=== PATIENT | female | born 1980 | race American Indian/Alaskan Native ===

== ENCOUNTER 2018-01-18 23:18 | Emergency (ER) | payer MEDICAID, OTHER, SELFPAY ==
[2018-01-18 23:30] VITALS: BP 123/94; PULSE 118; RESP 18; TEMP 36.7; O2SAT 97; BMI 151.8
[2018-01-18 23:34] VITALS: BP 123/94; PULSE 118; PULSE 95; RESP 18; TEMP 36.7; O2SAT 97; O2SAT 98; BMI 25.4
[2018-01-18] MEDS: KETOROLAC 60 MG/2 ML VIAL 15 MG IV (23:54)
[2018-01-18] MEDS: ONDANSETRON 4 MG/2 ML INJ IV (23:54)
[2018-01-18] MEDS: SODIUM CHLORIDE 0.9% 1,000 ML 150 ML IV (23:55)
[2018-01-18 23:56] LABS: Add Manual Diff / Slide Review NO; Basophils Percent Auto 0.9 % (0-2); Eosinophils Percent Auto 2.7 % (2-4); Hematocrit 39.3 % (36-46); Hemoglobin 13.7 g/dL (12.0-16.0); Lymphocytes Percent Auto 46.7 % (25-40); Mean Corpuscular Hemoglobin 32.2 PG (26-34); Mean Corpuscular Volume 91.9 fL (80-100); Monocytes Percent Auto 5.2 % (3-14); Neutrophils Absolute Auto 5100 /uL (3000-5900); Neutrophils Percent Auto 44.5 % (50-75); Platelet Count 250 X10^3/uL (150-400); Red Blood Cell Count 4.27 X10^6/uL (4.0-5.2); White Blood Cell Count 11.5 X10^3/uL (4.5-11.0)
[2018-01-19] LABS: Alanine Aminotransferase 20 IU/L (9-52); Albumin 4.7 g/dL (3.5-5.0); Albumin Globulin Ratio 1.7 (1.0-2.8); Alkaline Phosphatase 79 U/L (38-126); Aspartate Aminotransferase 24 IU/L (14-36); BUN Creatinine Ratio 17.8 (6-22); Bilirubin Total 0.4 mg/dL (0.2-1.3); Blood Urea Nitrogen 16 mg/dL (7-17); Calcium 9.8 mg/dL (8.4-10.2); Carbon Dioxide 24 mmol/L (22-32); Chloride 104 mmol/L (98-107); Estimated Glomerular Filt Rate > 60.0 mL/min (>60); Globulin 2.8 g/dL (1.7-4.1); Glucose 88 mg/dL (70-100); HEMOLYSIS < 15 (0-50); Lipase 86 U/L (23-300); Potassium 3.7 mmol/L (3.4-5.1); Sodium 142 mmol/L (137-145); Total Protein 7.5 g/dL (6.3-8.2)
--- NOTE | 2018-01-19 00:10 | DI.US.S_ITS ---
PROCEDURE: US PELVIC COMPLETE INDICATIONS: severe sudden LLQ pain, ovary? TECHNIQUE: Real-time scanning was performed of the pelvic organs, with image documentation. Additional endovaginal scanning was necessary due to incomplete visualization of the adnexal and endometrial structures by transabdominal scanning. COMPARISON: [facility], US, PELVIC COMPLETE, 06/15/2016, 10:31. FINDINGS: Transabdominal scanning: Limited scanning through the kidneys shows no hydronephrosis. No pathologic free abdominal or pelvic fluid. Endovaginal scanning: Uterus: Uterus is normal in size at 7.5 x 3.4 x 4 cm. The endometrium measures 5 mm in combined thickness. Ovaries: Right ovary measures 3.2 x 3.7 x 3.1 cm in size. Left ovary measures 3.3 x 1.9 x 3.8 cm in size. No discrete pulmonary lesion is seen. Small bilateral ovarian follicles are seen. Normal arterial and venous flow is seen in bilateral ovaries on color Doppler images. IMPRESSION: No evidence of ovarian torsion. No discrete ovarian lesion. Normal appearing uterus and endometrium. No discrepancy. Dictated by: Sid Ulloa M.D. on 01/19/2018 at 9:39 Approved by: Sid Ulloa M.D. on 01/19/2018 at 9:40
--- NOTE | 2018-01-19 00:53 | DI.CT.S_ITS ---
PROCEDURE: CT ABDOMEN PELVIS W CON INDICATIONS: severe LLQ pain, normal US, labs, urine. Hx diverticulitis TECHNIQUE: After the administration of intravenous contrast, 5 mm thick sections acquired from the diaphragm to the symphysis. 5 mm coronal and sagittal reformats were acquired. For radiation dose reduction, the following was used: automated exposure control, adjustment of mA and/or kV according to patient size. COMPARISON: [facility], CT, ABDOMEN/PELVIS WITH CONTRAST, 06/12/2016, 21:03. FINDINGS: Image quality: Excellent. ABDOMEN: Lung bases: Bibasilar dependent atelectasis is seen. Heart size is normal. Solid organs: Liver is normal in size. Tiny well circumscribed 2-3 mm hypodense areas are seen scattered in the parenchyma, unchanged from previous studies and likely represent tiny cysts. Gallbladder is within normal limits. Biliary system is non dilated. Pancreas enhances normally. Spleen is normal in size and enhancement. No adrenal nodules. Kidneys demonstrate normal size and enhancement, without hydronephrosis. Small upper pole left renal cyst is again seen, unchanged from prior study. Uterus and bilateral ovaries show no gross abnormality. Peritoneum and bowel: Bowel loops demonstrate normal wall thickness and caliber. No free fluid or air. Appendix is visualized and is within normal limits mild sigmoid diverticulosis is seen, no CT evidence of acute diverticulitis area. Nodes and vessels: No retroperitoneal or mesenteric adenopathy by size criteria. Aorta and inferior vena cava are normal in size. Miscellaneous: No ventral hernias. PELVIS: Genitourinary: Bladder wall thickness is normal. Miscellaneous: No inguinal hernias or adenopathy. Bones: No suspicious bony lesions. No vertebral body compression fractures. IMPRESSION: 1. Normal appendix. Mild sigmoid diverticulosis with no significant evidence of acute diverticulitis. No free fluid or free air. 2. No renal stone or hydronephrosis. 3. Tiny hypodense areas scattered in the parenchyma, likely represent tiny hepatic cysts. No discrepancies. Dictated by: Sid Ulloa M.D. on 01/19/2018 at 8:55 Approved by: Sid Ulloa M.D. on 01/19/2018 at 8:58
[2018-01-19] MEDS: HYDROMORPHONE 1 MG INJ IV (01:06)
[2018-01-19 01:26] VITALS: BP 116/58; PULSE 94; RESP 16; O2SAT 100
[2018-01-19 02:38] VITALS: BP 110/57; PULSE 76; RESP 16; TEMP 36.8; O2SAT 100
--- NOTE | 2018-01-19 02:42 | ED_ITS ---
HPI - Abdominal Pain General Chief Complaint: Abdominal Pain Stated Complaint: SHARP STOMACH PAINS Time Seen by Provider: 01/18/18 23:24 Source: patient and family Mode of arrival: ambulatory Limitations: no limitations History of Present Illness HPI narrative: 37-year-old female with history of diverticulitis and kidney stones presents with sudden onset left lower quadrant pain that started 30 min prior to her arrival. She denies provocation or palliation nor radiation of her discomfort. She denies vomiting, diarrhea or dysuria but admits to nausea. She denies vaginal bleeding or discharge MD complaint: abdominal pain Onset (ago): minute(s) Pain Consistency: constant Location: LLQ Severity: moderate Severity scale (1-10): 8 Quality: stabbing and sharp Radiation: LLQ Migration to: no migration Relieving factors: nothing Exacerbating factors: nothing Associated symptoms: nausea Related Data Hx Last Menstrual Period: Normal, finished yesterday Home Medications Medication Instructions Recorded Confirmed diphenhydramine HCl [Benadryl 25 mg PO QDAY #0 12/27/16 Allergy] cyclobenzaprine 01/19/18 tramadol 50 mg PO QID PRN 01/19/18 01/19/18 Previous Rx's Medication Instructions Recorded propranolol 10 mg PO BID #60 tab 07/12/16 gabapentin [Neurontin] 0 PO SEE INSTRUCTIONS #90 cap 12/19/16 hydroxyzine HCl 25 mg PO TIDP PRN #90 tab 03/14/17 ropinirole 0.5 mg PO HS #30 tab 03/19/17 rizatriptan [Maxalt] 10 mg PO QDAYP #10 tab 06/20/17 hydrocodone-acetaminophen 1 tab PO Q4-6H PRN #14 tab 01/19/18 ondansetron [Zofran ODT] 4 mg PO Q6H PRN #14 tab 01/19/18 Allergies Allergy/AdvReac Type Severity Reaction Status Date / Time codeine Allergy Mild RASH Verified 01/18/18 23:30 ibuprofen AdvReac Mild EMESIS Verified 01/18/18 23:30 Review of Systems Review of Systems All systems reviewed & are unremarkable except as noted in HPI and below Constitutional Denies chills, Denies fever(s), Denies lethargy and Denies weakness Eyes Denies change in vision, Denies eye discharge, Denies irritation and Denies loss of vision ENT Ears, Nose, Mouth, and Throat: Denies change in voice, Denies neck pain and Denies sore throat Cardiovascular Denies chest pain, Denies irregular heart rhythm, Denies lightheadedness, Denies palpitations, Denies dyspnea, Denies dyspnea on exertion and Denies orthopnea Respiratory Denies cough, Denies dyspnea, Denies dyspnea on exertion and Denies wheezing Gastrointestinal Gastrointestinal: Reports abdominal pain, Denies change in bowel habits, Denies diarrhea, Reports nausea and Denies vomiting Genitourinary Denies hematuria, Denies flank pain, Denies urinary incontinence and Denies urinary urgency Musculoskeletal Denies neck pain Integumentary/Breasts Denies pruritus, Denies erythema, Denies rash and Denies wounds Neurologic Denies confusion, Denies loss of vision and Denies weakness Psychiatric Denies anxiety, Denies confusion, Denies depression, Denies homicidal ideation and Denies suicidal ideation Endocrine Denies palpitations Hematologic/Lymphatic Denies easy bruising Allergic/Immunologic Denies wheezing [facility] Social History Smoking Status: Current every day smoker Exam Narrative Exam Narrative: 37-year-old female obviously in discomfort, clutching her left lower abdomen Initial Vital Signs Initial Vital Signs: Vital Signs Temperature 98.1 F 01/18/18 23:30 Pulse Rate 118 H 01/18/18 23:30 Respiratory Rate 18 01/18/18 23:30 Blood Pressure 123/94 H 01/18/18 23:30 Pulse Oximetry 97 01/18/18 23:30 Const General: cooperative and well developed Nutritional Appearance: well nourished Orientation: alert, awake, oriented x3 and not confused [facility] Head: normocephalic and atraumatic Ears: external ears normal and TM's normal bilaterally Nose: external nose normal and No nasal discharge Face and sinus: sinuses nontender, face symmetric, no sinus tenderness and No dry mucous membranes Mouth: oral mucosae normal and moist mucous membranes Teeth and gingiva: dentition normal Throat: tonsils normal and uvula midline Eyes General: appearance normal, both eyes and all related structures Eyelids: eyelids normal Conjunctivae: conjunctivae normal Sclera: sclerae normal Pupils: PERRL EOM: EOM intact bilaterally Resp Effort & Inspection: normal respiratory effort, able to speak in complete sentences, no respiratory distress and no use of accessory muscles Auscultation: clear to auscultation bilaterally, no rales, no rhonchi and no wheezes GI Inspection: non-distended Palpation: soft, no hepatosplenomegaly, No guarding, No pulsatile mass and tender (Left lower quadrant, mild) Auscultation: normal bowel sounds Back/Spine/Pelvis Back: No CVA tenderness Cervical Spine: cervical ROM normal and No pain with cervical ROM Thoracic/Lumbar Spine: thoracic and lumbar spine normal to inspection Skin General: no rashes or lesions noted, No jaundice and No petechiae Neuro General: alert, oriented x3, gait normal and no focal motor deficits Speech: speech normal Extrem General: full ROM, no clubbing, cyanosis or edema, no pedal edema and no calf tenderness Course Orders Ordered: ED Orders 01/18/18 23:40 Complete Blood Count AUTO DIFF Stat Comprehensive Metabolic Panel Stat Lipase Stat 01/19/18 00:10 US pelvic complete Stat Urine Microscopic Stat 01/19/18 00:53 CT abdomen pelvis w con Stat Sodium Chloride (Normal Saline 0.9%) 1,000 mls @ 150 mls/hr IV CONT CRYSTAL Last Admin: 01/18/18 23:55 Dose: 150 mls/hr Ondansetron HCl (Zofran) 4 mg IV Q4HR PRN PRN Reason: Nausea And Vomiting Last Admin: 01/18/18 23:54 Dose: 4 mg Discontinued Medications Hydrocodone Bitart/Acetaminophen (Vicodin Prepack) 1 bottle MISC SEEINSTR ONE Stop: 01/19/18 02:37 Last Admin: 01/19/18 02:55 Dose: 1 bottle Hydromorphone HCl (Dilaudid) 1 mg IV NOW ONE Stop: 01/19/18 00:54 Last Admin: 01/19/18 01:06 Dose: 1 mg Ketorolac Tromethamine (Toradol) 15 mg IV NOW ONE Stop: 01/18/18 23:35 Last Admin: 01/18/18 23:54 Dose: 15 mg Ondansetron HCl (Zofran Odt Prepack) 1 bottle MISC SEEINSTR ONE Stop: 01/19/18 02:37 Last Admin: 01/19/18 02:55 Dose: 1 bottle Vital Signs - 8 hr 01/18/18 23:30 01/18/18 23:34 01/19/18 01:26 Temperature 98.1 F 98.1 F Pulse Rate 118 H 95 H 94 H Respiratory Rate 18 18 16 Blood Pressure 123/94 H 123/94 H Blood Pressure [Right Arm] 116/58 L Pulse Oximetry 97 98 100 01/19/18 02:38 Temperature 98.3 F Pulse Rate 76 Respiratory Rate 16 Blood Pressure Blood Pressure [Right Arm] 110/57 L Pulse Oximetry 100 MDM - Abdominal Pain Differential Diagnosis Differential diagnosis: Likely abdominal pain, acute appendicitis, calculus of kidney, constipation, diverticulitis, endometriosis, gastroenteritis, pancreatitis and small bowel obstruction Medical Records Attestation: I reviewed the patient's medical records. Lab Data Attestation: I reviewed the patient's lab results. Result diagrams: 01/18/18 23:40 01/18/18 23:40 Lab Results 01/18/18 01/18/18 Range/Units 23:40 23:40 WBC 11.5 H (4.5-11.0) X10^3/uL RBC 4.27 (4.0-5.2) X10^6/uL Hgb 13.7 (12.0-16.0) g/dL Hct 39.3 (36-46) % MCV 91.9 (80-100) fL MCH 32.2 (26-34) PG MCHC 35.0 (30-36) % RDW 13.0 (11.6-14.8) % Plt Count 250 (150-400) X10^3/uL Neut % (Auto) 44.5 L (50-75) % Lymph % (Auto) 46.7 H (25-40) % [place] % (Auto) 5.2 (3-14) % Eos % (Auto) 2.7 (2-4) % Baso % (Auto) 0.9 (0-2) % Neut # (Auto) 5100 (5378-6602) /uL Sodium 142 (137-145) mmol/L Potassium 3.7 (3.4-5.1) mmol/L Chloride 104 (98-107) mmol/L Carbon Dioxide 24 (22-32) mmol/L BUN 16 (7-17) mg/dL Creatinine 0.90 (0.52-1.04) mg/dL Estimated GFR > 60.0 (>60) mL/min BUN/Creatinine Ratio 17.8 (6-22) Glucose 88 (70-100) mg/dL Calcium 9.8 (8.4-10.2) mg/dL Total Bilirubin 0.4 (0.2-1.3) mg/dL AST 24 (14-36) IU/L ALT 20 (9-52) IU/L Alkaline Phosphatase 79 (38-126) U/L Total Protein 7.5 (6.3-8.2) g/dL Albumin 4.7 (3.5-5.0) g/dL Globulin 2.8 (1.7-4.1) g/dL Albumin/Globulin Ratio 1.7 (1.0-2.8) Lipase 86 (23-300) U/L Point of care testing: Urine Dip Bedside Urine Glucose Negative Bedside Urine Bilirubin - Negative Bedside Urine Ketone - Negative Urine Specific [place] 1.020 Bedside Urine Occult Blood - Negative Bedside Urine Protein - Negative Bedside Urine Urobilinogen - Negative Bedside Urine Nitrite + Positive Bedside Urine Leukocytes - Negative Esterase Imaging Data CT scan - abdomen: Radiologist's impression: 1. Normal appendix. No free air, bowel obstruction, or gross intestinal inflammation 2. Negative for acute obstructive uropathy 3. A few subcentimeter hepatic cysts are suspect MDM Narrative Medical decision making narrative: Considered ovarian torsion, tubo-ovarian abscess, ovarian cyst but patient has normal pelvic ultrasound Considered diverticulitis but patient has normal CT Considered kidney stone but no hematuria or evidence of stone on CT Considered UTI or pyelonephritis but no signs of UTI on urine and patient denies dysuria, frequency or urgency. There are nitrites noted and we will follow the cultures. No antibiotic indicated Endometriosis or pelvic congestion considered and will therefore refer to gynecology Discharge Plan Departure Patient Disposition: Home Clinical Impression: Pelvic pain Instructions: DI for Pelvic Pain Activity Restrictions/Additional Instructions: *You have been diagnosed with [ left lower quadrant pain ] *What to do: *Take medications as directed *Follow up with your primary care provider in 2-3 days, call for an appointment. Let them know you were seen in the Emergency Department and that we ask that you be seen in follow up *Return to ER if you should have any new, worsening or concerning symptoms Prescriptions: New hydrocodone-acetaminophen 5-325 mg tablet 1 tab PO Q4-6H PRN (Reason: pain) Qty: 14 RF: 0 ondansetron [Zofran ODT] 4 mg tablet,disintegrating 4 mg PO Q6H PRN (Reason: nausea and vomiting) Qty: 14 RF: 0 No Action propranolol 10 MG tablet 10 mg PO BID Qty: 60 RF: 2 gabapentin [Neurontin] 300 MG capsule PO SEE INSTRUCTIONS Qty: 90 RF: 11 diphenhydramine HCl [Benadryl Allergy] 25 MG tablet 25 mg PO QDAY Qty: 0 RF: 0 hydroxyzine HCl 25 MG tablet 25 mg PO TIDP PRNQty: 90 RF: 1 ropinirole 0.5 MG tablet 0.5 mg PO HS Qty: 30 RF: 3 rizatriptan [Maxalt] 10 MG tablet 10 mg PO QDAYP Qty: 10 RF: 2 tramadol 50 MG tablet 50 mg PO QID PRN (Reason: Pain (Scale Score 1-3)) RF: 0 cyclobenzaprine RF: 0 Referrals: Annette Hi MD [Physician] -
[2018-01-19] MEDS: ONDANSETRON 4 MG ODT PREPACK 1 BOTTLE MISC (02:55)
[2018-01-19] MEDS: HYDROCODONE/ACET 5/325 PREPACK 1 BOTTLE MISC (02:55)
--- NOTE | 2018-01-19 03:32 | PC.NURSE ---
IV ABX Rocephin started after 1 set of blood culture obtained. Pt uncoopertive and unable to obtained additional blood per laborer heading. aware and okayed.
--- NOTE | 2018-01-19 03:33 | PC.NURSE ---
Late Entry at 0220-Unable to obtained CT when RN and tech accompanied pt due to pt got agitate, uncooperative and attempting to getting out of bed even with redirection. Pt was unable to keep supine position for CT Head test. Pt returned to ER with techs and bed 6 and informed the MD the above.
--- NOTE | 2018-02-11 | PC.NURSE ---
Late Entry for 01/18/2018 at 0300-Completed NS 0.9% infusion of 500ml prior dc to home.
== END 2018-01-19 03:00 | disposition home or self-care (01) ==
PROVIDERS: Emergency Provider Emergency Medicine; Family Provider Family Medicine; PCP Family Medicine
DX: R10.2 Pelvic and perineal pain (principal)
CPT/HCPCS: 74177; 76830; 76856; 80053; 81003; 83690; 85025; 96361; 96374; 96375; 99283; 99285; J1170; J1885; J2405; Q9967

== ENCOUNTER 2018-10-03 13:31 | Emergency (ER) | payer MEDICAID, OTHER, SELFPAY ==
[2018-10-03 13:37] VITALS: BP 111/71; PULSE 132; RESP 18; TEMP 37.1; O2SAT 97
--- NOTE | 2018-10-03 13:53 | ED.ABDPAIN ---
HPI - Abdominal Pain <Lisette Razo PA-C - Last Filed: 10/03/18 21:56> General Chief Complaint: Abdominal Pain Stated Complaint: stomach pain,states really bad Time Seen by Provider: 10/03/18 13:49 Source: patient Mode of arrival: ambulatory Limitations: no limitations History of Present Illness HPI narrative: This 37-year-old female comes to ED secondary to worsening of left-sided flank area pain. She states she has been having intermittent difficulty with ongoing left-sided pain in various locations for at least a year. This started again about 2 weeks ago, and she was actually seen another local ED less than a week ago, labs and imaging done and no acute findings. She states she has not followed up in the interim with her PC P. she states that pain worsened today while she was getting ready for work. She denies any trauma, states she was doing spring cleaning she thinks maybe prior to the pain starting 2 weeks ago, and today it became severe enough to where she doubled over and had to be helped off the floor. She states pain is localized under her left lateral rib area. She denies any exacerbating or alleviating features, states pain is constant but will get a little bit worse episodically. She states she has had some retching and vomiting today which are new (mostly retching as she has not eaten, gets up late due to swing shift and was getting ready for work when this worsened). She states that she did keep down her tramadol today, has not had fluids. She denies any cough or upper respiratory symptoms or recent illness. She denies any fever, chills, sweats. She denies any hematuria or urinary symptoms. She denies any possibility of , last period was about 2 weeks ago. She states that she has some loose stools due to do a prescription she was given last weekend at the emergency department, no vernon diarrhea. She denies any chest pain or dyspnea or other new complaints on systems review Related Data Home Medications Medication Instructions Recorded Confirmed omeprazole 40 mg PO [id number] 10/03/18 10/03/18 sucralfate [Carafate] 1 g PO [id number] 10/03/18 10/03/18 tramadol 50 mg PO Q6H PRN 10/03/18 10/03/18 Previous Rx's Medication Instructions Recorded levofloxacin [Levaquin] 750 mg PO DAILY 6 Days tab 10/03/18 Allergies Allergy/AdvReac Type Severity Reaction Status Date / Time codeine Allergy Mild RASH Verified 10/03/18 13:41 ibuprofen AdvReac Mild EMESIS Verified 10/03/18 13:41 Review of Systems <Lisette Razo PA-C - Last Filed: 10/03/18 21:56> Review of Systems ROS Unobtainable: All systems reviewed & are unremarkable except as noted in HPI and below PFSH <Lisette Razo PA-C - Last Filed: 10/03/18 21:56> Medical History (Updated 10/03/18 @ 19:46 by Lisette Razo PA-C) Chronic pain in right shoulder (Chronic) Degenerative joint disease of cervical spine (Chronic) H/O renal calculi (Resolved) Migraine (Chronic) Surgical History (Updated 10/03/18 @ 14:25 by Lisette Razo PA-C) Status post shoulder surgery (Resolved) Status post wrist surgery (Resolved) Status post (Resolved) Family History (Updated 10/03/18 @ 13:53 by Lisette Razo PA-C) Other Migraine Social History Smoking Status: Current every day smoker Social History Smoking Status: Current every day smoker Exam <Lisette Razo PA-C - Last Filed: 10/03/18 21:56> Narrative Exam Narrative: GENERAL APPEARANCE: Patient appears somewhat uncomfortable, texting on her cell phone HEENT: PERRL, EOMI, no scleral icterus, normal oropharynx NECK: Supple, no masses LUNGS: Clear to auscultation bilaterally. HEART: Rate and rhythm regular, normal S1 and S2, no S3 or S4. ABDOMEN: Soft, nondistended, bowel sounds present x 4 quadrants, no masses palpable, no hepatosplenomegaly. tender left upper quadrant midline to lateral without guarding or rebound, no CVAT EXTREMITIES: No edema, no calf tenderness DERMATOLOGIC: No jaundice or exanthem NEUROLOGIC: Alert and oriented with normal speech and coordination Initial Vital Signs Initial Vital Signs: Vital Signs Temperature 98.8 F 10/03/18 13:37 Pulse Rate 132 H 05/10/19 13:37 Respiratory Rate 18 10/03/18 13:37 Blood Pressure 111/71 10/03/18 13:37 Pulse Oximetry 97 10/03/18 13:37 <Salomón White DO - Last Filed: 10/06/18 07:07> Initial Vital Signs Initial Vital Signs: Vital Signs Temperature 98.8 F 10/03/18 13:37 Pulse Rate 132 H 10/03/18 13:37 Respiratory Rate 18 10/03/18 13:37 Blood Pressure 111/71 10/03/18 13:37 Pulse Oximetry 97 10/03/18 13:37 Course <Lisette Razo PA-C - Last Filed: 10/03/18 21:56> Additional Information: At the time of discharge patient has had resolution in nausea and pain is improved. No acute findings on lab work or ultrasound, lab work and CT findings from ED visit last week reviewed. She does have bacteriuria and increased flank pain today so is started on treatment for pyelonephritis and given prescription for Levaquin to continue tomorrow. She has had Cipro previously without problems. She agreed to return right away if any acutely worsening symptoms over the weekend, otherwise promises to follow up with PCP on Saturday since her left-sided pain is chronic and she has not been seen after her ER visit last week. Orders Ordered: Discontinued Medications Cyclobenzaprine HCl (Flexeril) 10 mg PO NOW ONE Stop: 10/03/18 15:58 Last Admin: 10/03/18 16:01 Dose: 10 mg Sodium Chloride (Normal Saline 0.9%) 1,000 mls @ 1,000 mls/hr IV BOLUS ONE Stop: 10/03/18 15:18 Last Infusion: 10/03/18 15:15 Dose: 0 mls/hr Admin: 10/03/18 14:21 Dose: 1,000 mls/hr Sodium Chloride (Normal Saline 0.9%) 1,000 mls @ 1,000 mls/hr IV BOLUS ONE Stop: 10/03/18 16:55 Last Infusion: 10/03/18 17:03 Dose: 0 mls/hr Admin: 10/03/18 16:01 Dose: 1,000 mls/hr Lidocaine HCl 4.7 ml/ Sodium (Chloride) 54.7 mls @ 328.2 mls/hr IV NOW ONE Stop: 10/03/18 17:17 Last Infusion: 10/03/18 18:50 Dose: 0 mls/hr Admin: 10/03/18 17:54 Dose: 328.2 mls/hr Ketorolac Tromethamine (Toradol) 30 mg IV NOW ONE Stop: 10/03/18 14:07 Last Admin: 10/03/18 14:35 Dose: 30 mg Levofloxacin (Levaquin) 750 mg PO NOW ONE Stop: 10/03/18 17:43 Last Admin: 10/03/18 18:21 Dose: 750 mg Ondansetron HCl (Zofran) 4 mg IV NOW ONE Stop: 10/03/18 14:07 Last Admin: 10/03/18 14:21 Dose: 4 mg Ondansetron HCl (Zofran) 4 mg IV NOW ONE Stop: 10/03/18 15:57 Last Admin: 10/03/18 16:01 Dose: 4 mg Pantoprazole Sodium (Protonix) 40 mg IV NOW ONE Stop: 10/03/18 14:07 Last Admin: 10/03/18 14:36 Dose: 40 mg Tramadol HCl (Ultram) 100 mg PO NOW ONE Stop: 10/03/18 18:36 Last Admin: 10/03/18 18:50 Dose: 100 mg Vital Signs - 8 hr 10/03/18 14:49 10/03/18 15:00 10/03/18 16:00 Temperature Pulse Rate 96 H 99 H 92 H Respiratory Rate 18 13 13 Blood Pressure [Left Arm] 115/73 103/67 107/56 L Pulse Oximetry 97 98 99 10/03/18 18:52 10/03/18 19:29 Temperature 98.2 F Pulse Rate 95 H 80 Respiratory Rate 18 13 Blood Pressure [Left Arm] 103/62 98/59 L Pulse Oximetry 98 99 <Salomón White DO - Last Filed: 10/06/18 07:07> Orders Ordered: Discontinued Medications Cyclobenzaprine HCl (Flexeril) 10 mg PO NOW ONE Stop: 10/03/18 15:58 Last Admin: 10/03/18 16:01 Dose: 10 mg Sodium Chloride (Normal Saline 0.9%) 1,000 mls @ 1,000 mls/hr IV BOLUS ONE Stop: 10/03/18 15:18 Last Infusion: 10/03/18 15:15 Dose: 0 mls/hr Admin: 10/03/18 14:21 Dose: 1,000 mls/hr Sodium Chloride (Normal Saline 0.9%) 1,000 mls @ 1,000 mls/hr IV BOLUS ONE Stop: 10/03/18 16:55 Last Infusion: 10/03/18 17:03 Dose: 0 mls/hr Admin: 10/03/18 16:01 Dose: 1,000 mls/hr Lidocaine HCl 4.7 ml/ Sodium (Chloride) 54.7 mls @ 328.2 mls/hr IV NOW ONE Stop: 10/03/18 17:17 Last Infusion: 10/03/18 18:50 Dose: 0 mls/hr Admin: 10/03/18 17:54 Dose: 328.2 mls/hr Ketorolac Tromethamine (Toradol) 30 mg IV NOW ONE Stop: 10/03/18 14:07 Last Admin: 10/03/18 14:35 Dose: 30 mg Levofloxacin (Levaquin) 750 mg PO NOW ONE Stop: 10/03/18 17:43 Last Admin: 10/03/18 18:21 Dose: 750 mg Ondansetron HCl (Zofran) 4 mg IV NOW ONE Stop: 10/03/18 14:07 Last Admin: 10/03/18 14:21 Dose: 4 mg Ondansetron HCl (Zofran) 4 mg IV NOW ONE Stop: 10/03/18 15:57 Last Admin: 10/03/18 16:01 Dose: 4 mg Pantoprazole Sodium (Protonix) 40 mg IV NOW ONE Stop: 10/03/18 14:07 Last Admin: 10/03/18 14:36 Dose: 40 mg Tramadol HCl (Ultram) 100 mg PO NOW ONE Stop: 10/03/18 18:36 Last Admin: 10/03/18 18:50 Dose: 100 mg Vital Signs - 8 hr 10/03/18 14:49 10/03/18 15:00 10/03/18 16:00 Temperature Pulse Rate 96 H 99 H 92 H Respiratory Rate 18 13 13 Blood Pressure [Left Arm] 115/73 103/67 107/56 L Pulse Oximetry 97 98 99 10/03/18 18:52 10/03/18 19:29 Temperature 98.2 F Pulse Rate 95 H 80 Respiratory Rate 18 13 Blood Pressure [Left Arm] 103/62 98/59 L Pulse Oximetry 98 99 MDM - Abdominal Pain <Lisette Razo PA-C - Last Filed: 10/03/18 21:56> Lab Data Attestation: I reviewed the patient's lab results. Result diagrams: 10/03/18 14:15 10/03/18 14:15 Lab Results 10/03/18 10/03/18 10/03/18 Range/Units 14:15 14:15 15:30 WBC 9.2 (4.5-11.0) X10^3/uL RBC 4.73 (4.0-5.2) X10^6/uL Hgb 14.5 (12.0-16.0) g/dL Hct 43.9 (36-46) % MCV 92.9 (80-100) fL MCH 30.7 (26-34) PG MCHC 33.0 (30-36) % RDW 13.1 (11.6-14.8) % Plt Count 240 (150-400) X10^3/uL Neut % (Auto) 66.7 (50-75) % Lymph % (Auto) 26.2 (25-40) % [place] % (Auto) 5.4 (3-14) % Eos % (Auto) 0.9 L (2-4) % Baso % (Auto) 0.8 (0-2) % Neut # (Auto) 6200 (3295-1853) /uL Lymph # (Auto) 2400 (3265-7810) /uL [place] # (Auto) 500 (0-900) /uL Eos # (Auto) 100 (0-450) /uL Baso # (Auto) 100 (0-100) /uL Sodium 140 (137-145) mmol/L Potassium 4.0 (3.4-5.1) mmol/L Chloride 107 (98-107) mmol/L Carbon Dioxide 17 L (22-32) mmol/L BUN 11 (7-17) mg/dL Creatinine 0.80 (0.52-1.04) mg/dL Estimated GFR > 60.0 (>60) mL/min BUN/Creatinine Ratio 13.8 (6-22) Glucose 78 (70-100) mg/dL Calcium 9.0 (8.4-10.2) mg/dL Total Bilirubin 0.3 (0.2-1.3) mg/dL AST 28 (14-36) IU/L ALT 23 (9-52) IU/L Alkaline Phosphatase 63 (38-126) U/L Total Protein 8.4 H (6.3-8.2) g/dL Albumin 5.0 (3.5-5.0) g/dL Globulin 3.4 (1.7-4.1) g/dL Albumin/Globulin Ratio 1.5 (1.0-2.8) Lipase 58 (23-300) U/L Urine RBC 1-5/hpf (0-5/HPF) Urine WBC 5-10/hpf H (0-5/HPF) Ur Squamous Epith Cells 1-5 /hpf (0-5/HPF) Urine Bacteria Moderate (10-30) H (None) Urine Mucus 2+ H (Negative) Ur Culture Indicated? Specimen cultured Point of care testing: Point of Care Testing Test Results Negative Urine Dip Bedside Urine Glucose Negative Bedside Urine Bilirubin + 1 Bedside Urine Ketone + 15 Urine Specific [place] 1.030 Bedside Urine Occult Blood +/- Bedside Urine pH 6.0 Bedside Urine Protein + 30 Bedside Urine Urobilinogen +/- 1mg Bedside Urine Nitrite - Negative Bedside Urine Leukocytes - Negative Esterase Imaging Data US - abdomen: Radiologist's impression: Chart [facility] Diagn[facility] DATE TYPE STATUS AUTHOR Hx 10/03/18 15:56 Greg Wood 01/19/18 00:53 Sid Ulloa 01/19/18 00:10 Sid Ulloa Tonna K 37, F1980 DEP ER, ED.LOC - Main ED 62.596kg Abdominal Pain Search Chart RASH EMESIS ONSET Today 19:29 Latrell Molina 37 F [address] [address] Ultrasound Report Signed Patient: Latrell Molina KMR#: [id number] : 1980Acct:[id number] Age/Sex: 37 / FDate of Service: 10/03/18 Loc: ED Accession Number: [id number] Procedure: US abdomen complete Ordering Provider: Fishfader,Lisette P.A-C PROCEDURE: US ABDOMEN COMPLETE INDICATIONS: LUQ PAIN (CT DONE AT [facility] LAST WEEK) TECHNIQUE: Real-time scanning was performed of the abdominal and retroperitoneal organs, with image documentation. COMPARISON: Correlation is made with [facility] CT 09/27/18 [facility], CT, CT ABDOMEN PELVIS W CON, 01/19/2018, 1:05. [facility], US, ABDOMEN COMPLETE, 01/22/2014, 17:11. FINDINGS: Liver: Liver is normal in size and homogeneous in echotexture. Gallbladder: The No findings of gallstones or sludge are seen. The gallbladder wall is not thickened, measuring 3 mm or less. No specific pericholecystic fluid is seen. The sonographic Pickens sign is negative. Biliary ducts: Intrahepatic bile ducts are non-dilated. Extrahepatic bile duct caliber measures 3 mm. Normal is 6-7 mm or less in diameter, or 10 mm or less post-cholecystectomy. Pancreas: Visualized portions of the pancreas are sonographically normal. Spleen: Spleen is normal in size and homogeneous in echotexture. Kidneys: Kidneys are normal in size and echotexture. Right kidney measures 9.5 cm long; left kidney measures 9.8 cm long. No hydronephrosis or nephrolithiasis. No solid masses. A 1.2 cm simple appearing renal cyst is seen on the left laterally. The renal cortex on both sides appears thinned. Aorta: Visualized aorta is normal in caliber at less than 3 cm. Iliacs: Proximal common iliac arteries are normal in caliber at less than 2.5 cm. IVC: Intrahepatic inferior vena cava is patent. Miscellaneous: No free abdominal fluid. IMPRESSION: No imaging explanation is found for this patient's presenting history of left upper quadrant pain. The gallbladder demonstrates a normal sonographic appearance. No biliary dilatation is seen. Simple appearing 1.2 cm renal cyst seen. Thinning of the renal cortex can be seen on both sides. Dictated by: Greg Wood M.D. on 10/03/2018 at 16:27 Approved by: Greg Wood M.D. on 10/03/2018 at 16:30 <Salomón White DO - Last Filed: 10/06/18 07:07> Lab Data Lab Results 10/03/18 10/03/18 10/03/18 Range/Units 14:15 14:15 15:30 WBC 9.2 (4.5-11.0) X10^3/uL RBC 4.73 (4.0-5.2) X10^6/uL Hgb 14.5 (12.0-16.0) g/dL Hct 43.9 (36-46) % MCV 92.9 (80-100) fL MCH 30.7 (26-34) PG MCHC 33.0 (30-36) % RDW 13.1 (11.6-14.8) % Plt Count 240 (150-400) X10^3/uL Neut % (Auto) 66.7 (50-75) % Lymph % (Auto) 26.2 (25-40) % [place] % (Auto) 5.4 (3-14) % Eos % (Auto) 0.9 L (2-4) % Baso % (Auto) 0.8 (0-2) % Neut # (Auto) 6200 (6346-8194) /uL Lymph # (Auto) 2400 (0039-3494) /uL [place] # (Auto) 500 (0-900) /uL Eos # (Auto) 100 (0-450) /uL Baso # (Auto) 100 (0-100) /uL Sodium 140 (137-145) mmol/L Potassium 4.0 (3.4-5.1) mmol/L Chloride 107 (98-107) mmol/L Carbon Dioxide 17 L (22-32) mmol/L BUN 11 (7-17) mg/dL Creatinine 0.80 (0.52-1.04) mg/dL Estimated GFR > 60.0 (>60) mL/min BUN/Creatinine Ratio 13.8 (6-22) Glucose 78 (70-100) mg/dL Calcium 9.0 (8.4-10.2) mg/dL Total Bilirubin 0.3 (0.2-1.3) mg/dL AST 28 (14-36) IU/L ALT 23 (9-52) IU/L Alkaline Phosphatase 63 (38-126) U/L Total Protein 8.4 H (6.3-8.2) g/dL Albumin 5.0 (3.5-5.0) g/dL Globulin 3.4 (1.7-4.1) g/dL Albumin/Globulin Ratio 1.5 (1.0-2.8) Lipase 58 (23-300) U/L Urine RBC 1-5/hpf (0-5/HPF) Urine WBC 5-10/hpf H (0-5/HPF) Ur Squamous Epith Cells 1-5 /hpf (0-5/HPF) Urine Bacteria Moderate (10-30) H (None) Urine Mucus 2+ H (Negative) Ur Culture Indicated? Specimen cultured Point of care testing: Point of Care Testing Test Results Negative Urine Dip Bedside Urine Glucose Negative Bedside Urine Bilirubin + 1 Bedside Urine Ketone + 15 Urine Specific [place] 1.030 Bedside Urine Occult Blood +/- Bedside Urine pH 6.0 Bedside Urine Protein + 30 Bedside Urine Urobilinogen +/- 1mg Bedside Urine Nitrite - Negative Bedside Urine Leukocytes - Negative Esterase Discharge Plan Departure Patient Disposition: Home Clinical Impression: Left upper quadrant abdominal pain of unknown etiology, Pyelonephritis Discharge Date/Time: 10/03/18 19:55 Interventions: ED Discharge Assessment Last Done: 10/03/18 19:53 Instructions: DI for Kidney Infection, DI for Abdominal Pain-Adult Activity Restrictions/Additional Instructions: As we discussed, you should return if you have any acutely worsening symptoms again, or unable to keep down your antibiotics (you are not due for another dose until early tomorrow evening), or if you have new symptoms such as fever. Otherwise, please continue the antibiotic Levofloxacin once daily to cover for kidney infection. There were no acute findings on your blood or or ultrasound today, but you did have bacteria in your urine. This does not explain your chronic left-sided pain that you have had recently, nor did the testing you had last week at [facility]. Please be sure to follow up with your PCP on Saturday to assess your progress, and determine where to go with further testing and referral. Please continue your other usual medicines. Prescriptions: New levofloxacin [Levaquin] 750 mg tablet 750 mg PO DAILY 6 Days RF: 0 No Action sucralfate [Carafate] 100 mg/mL suspension 1 g PO [id number] RF: 0 omeprazole 40 mg capsule,delayed release(DR/EC) 40 mg PO [id number] RF: 0 tramadol 50 mg tablet 50 mg PO Q6H PRN (Reason: pain) RF: 0 Referrals: Gia Gonzales MD [Non-Staff] - <Salomón White, DO - Last Filed: 10/06/18 07:07> Cosign ED Attending Philippeature Attestation: I was immediately available in the department for consultation. Documentation has been reviewed. I agree with assessment and plan.
[2018-10-03] MEDS: ONDANSETRON 4 MG/2 ML INJ IV ×2 (14:21→16:01)
[2018-10-03] MEDS: SODIUM CHLORIDE 0.9% 1,000 ML 1000 ML IV ×2 (14:21→16:01)
--- NOTE | 2018-10-03 14:26 | ED_ITS ---
HPI - Abdominal Pain <Lisette Razo PA-C - Last Filed: 10/03/18 21:56> General Chief Complaint: Abdominal Pain Stated Complaint: stomach pain,states really bad Time Seen by Provider: 10/03/18 13:49 Source: patient Mode of arrival: ambulatory Limitations: no limitations History of Present Illness HPI narrative: This 37-year-old female comes to ED secondary to worsening of left-sided flank area pain. She states she has been having intermittent difficulty with ongoing left-sided pain in various locations for at least a year. This started again about 2 weeks ago, and she was actually seen another local ED less than a week ago, labs and imaging done and no acute findings. She states she has not followed up in the interim with her PC P. she states that pain worsened today while she was getting ready for work. She denies any trauma, states she was doing spring cleaning she thinks maybe prior to the pain starting 2 weeks ago, and today it became severe enough to where she doubled over and had to be helped off the floor. She states pain is localized under her left lateral rib area. She denies any exacerbating or alleviating features, states pain is constant but will get a little bit worse episodically. She states she has had some retching and vomiting today which are new (mostly retching as she has not eaten, gets up late due to swing shift and was getting ready for work when this worsened). She states that she did keep down her tramadol today, has not had fluids. She denies any cough or upper respiratory symptoms or recent illness. She denies any fever, chills, sweats. She denies any hematuria or urinary symptoms. She denies any possibility of , la st period was about 2 weeks ago. She states that she has some loose stools due to do a prescription she was given last weekend at the emergency department, no vernon diarrhea. She denies any chest pain or dyspnea or other new complaints on systems review Related Data Home Medications Medication Instructions Recorded Confirmed omeprazole 40 mg PO [id number] 10/03/18 10/03/18 sucralfate [Carafate] 1 g PO [id number] 10/03/18 10/03/18 tramadol 50 mg PO Q6H PRN 10/03/18 10/03/18 Previous Rx's Medication Instructions Recorded levofloxacin [Levaquin] 750 mg PO DAILY 6 Days tab 10/03/18 Allergies Allergy/AdvReac Type Severity Reaction Status Date / Time codeine Allergy Mild RASH Verified 10/03/18 13:41 ibuprofen AdvReac Mild EMESIS Verified 10/03/18 13:41 Review of Systems <Lisette Razo PA-C - Last Filed: 10/03/18 21:56> Review of Systems ROS Unobtainable: All systems reviewed & are unremarkable except as noted in HPI and below PFSH <Lisette Razo PA-C - Last Filed: 10/03/18 21:56> Medical History (Updated 10/03/18 @ 19:46 by Lisette Razo PA-C) Chronic pain in right shoulder (Chronic) Degenerative joint disease of cervical spine (Chronic) H/O renal calculi (Resolved) Migraine (Chronic) Surgical History (Updated 10/03/18 @ 14:25 by Lisette Razo PA-C) Status post shoulder surgery (Resolved) Status post wrist surgery (Resolved) Status post (Resolved) Family History (Updated 10/03/18 @ 13:53 by Lisette Razo PA-C) Other Migraine Social History Smoking Status: Current every day smoker Social History Smoking Status: Current every day smoker Exam <Lisette Razo PA-C - Last Filed: 10/03/18 21:56> Narrative Exam Narrative: GENERAL APPEARANCE: Patient appears somewhat uncomfortable, texting on her cell phone HEENT: PERRL, EOMI, no scleral icterus, normal oropharynx NECK: Supple, no masses LUNGS: Clear to auscultation bilaterally. HEART: Rate and rhythm regular, normal S1 and S2, no S3 or S4. ABDOMEN: Soft, nondistended, bowel sounds present x 4 quadrants, no masses palpable, no hepatosplenomegaly. tender left upper quadrant midline to lateral without guarding or rebound, no CVAT EXTREMITIES: No edema, no calf tenderness DERMATOLOGIC: No jaundice or exanthem NEUROLOGIC: Alert and oriented with normal speech and coordination Initial Vital Signs Initial Vital Signs: Vital Signs Temperature 98.8 F 10/03/18 13:37 Pulse Rate 132 H 10/03/18 13:37 Respiratory Rate 18 10/03/18 13:37 Blood Pressure 111/71 10/03/18 13:37 Pulse Oximetry 97 10/03/18 13:37 <Salomón White DO - Last Filed: 10/06/18 07:07> Initial Vital Signs Initial Vital Signs: Vital Signs Temperature 98.8 F 10/03/18 13:37 Pulse Rate 132 H 10/03/18 13:37 Respiratory Rate 18 10/03/18 13:37 Blood Pressure 111/71 10/03/18 13:37 Pulse Oximetry 97 10/03/18 13:37 Course <Lisette Razo PA-C - Last Filed: 10/03/18 21:56> Additional Information: At the time of discharge patient has had resolution in nausea and pain is improved. No acute findings on lab work or ultrasound, lab work and CT findings from ED visit last week reviewed. She does have bacteriuria and increased flank pain today so is started on treatment for pyelonephritis and given prescription for Levaquin to continue tomorrow. She has had Cipro previously without problems. She agreed to return right away if any acutely worsening symptoms over the weekend, otherwise promises to follow up with PCP on Saturday since her left-sided pain is chronic and she has not been seen after her ER visit last week. Orders Ordered: Discontinued Medications Cyclobenzaprine HCl (Flexeril) 10 mg PO NOW ONE Stop: 10/03/18 15:58 Last Admin: 10/03/18 16:01 Dose: 10 mg Sodium Chloride (Normal Saline 0.9%) 1,000 mls @ 1,000 mls/hr IV BOLUS ONE Stop: 10/03/18 15:18 Last Infusion: 10/03/18 15:15 Dose: 0 mls/hr Admin: 10/03/18 14:21 Dose: 1,000 mls/hr Sodium Chloride (Normal Saline 0.9%) 1,000 mls @ 1,000 mls/hr IV BOLUS ONE Stop: 10/03/18 16:55 Last Infusion: 10/03/18 17:03 Dose: 0 mls/hr Admin: 10/03/18 16:01 Dose: 1,000 mls/hr Lidocaine HCl 4.7 ml/ Sodium (Chloride) 54.7 mls @ 328.2 mls/hr IV NOW ONE Stop: 10/03/18 17:17 Last Infusion: 10/03/18 18:50 Dose: 0 mls/hr Admin: 10/03/18 17:54 Dose: 328.2 mls/hr Ketorolac Tromethamine (Toradol) 30 mg IV NOW ONE Stop: 10/03/18 14:07 Last Admin: 10/03/18 14:35 Dose: 30 mg Levofloxacin (Levaquin) 750 mg PO NOW ONE Stop: 10/03/18 17:43 Last Admin: 10/03/18 18:21 Dose: 750 mg Ondansetron HCl (Zofran) 4 mg IV NOW ONE Stop: 10/03/18 14:07 Last Admin: 10/03/18 14:21 Dose: 4 mg Ondansetron HCl (Zofran) 4 mg IV NOW ONE Stop: 10/03/18 15:57 Last Admin: 10/03/18 16:01 Dose: 4 mg Pantoprazole Sodium (Protonix) 40 mg IV NOW ONE Stop: 10/03/18 14:07 Last Admin: 10/03/18 14:36 Dose: 40 mg Tramadol HCl (Ultram) 100 mg PO NOW ONE Stop: 10/03/18 18:36 Last Admin: 10/03/18 18:50 Dose: 100 mg Vital Signs - 8 hr 10/03/18 14:49 10/03/18 15:00 10/03/18 16:00 Temperature Pulse Rate 96 H 99 H 92 H Respiratory Rate 18 13 13 Blood Pressure [Left Arm] 115/73 103/67 107/56 L Pulse Oximetry 97 98 99 10/03/18 18:52 10/03/18 19:29 Temperature 98.2 F Pulse Rate 95 H 80 Respiratory Rate 18 13 Blood Pressure [Left Arm] 103/62 98/59 L Pulse Oximetry 98 99 <Salomón White DO - Last Filed: 10/06/18 07:07> Orders Ordered: Discontinued Medications Cyclobenzaprine HCl (Flexeril) 10 mg PO NOW ONE Stop: 10/03/18 15:58 Last Admin: 10/03/18 16:01 Dose: 10 mg Sodium Chloride (Normal Saline 0.9%) 1,000 mls @ 1,000 mls/hr IV BOLUS ONE Stop: 10/03/18 15:18 Last Infusion: 10/03/18 15:15 Dose: 0 mls/hr Admin: 10/03/18 14:21 Dose: 1,000 mls/hr Sodium Chloride (Normal Saline 0.9%) 1,000 mls @ 1,000 mls/hr IV BOLUS ONE Stop: 10/03/18 16:55 Last Infusion: 10/03/18 17:03 Dose: 0 mls/hr Admin: 10/03/18 16:01 Dose: 1,000 mls/hr Lidocaine HCl 4.7 ml/ Sodium (Chloride) 54.7 mls @ 328.2 mls/hr IV NOW ONE Stop: 10/03/18 17:17 Last Infusion: 10/03/18 18:50 Dose: 0 mls/hr Admin: 10/03/18 17:54 Dose: 328.2 mls/hr Ketorolac Tromethamine (Toradol) 30 mg IV NOW ONE Stop: 10/03/18 14:07 Last Admin: 10/03/18 14:35 Dose: 30 mg Levofloxacin (Levaquin) 750 mg PO NOW ONE Stop: 10/03/18 17:43 Last Admin: 10/03/18 18:21 Dose: 750 mg Ondansetron HCl (Zofran) 4 mg IV NOW ONE Stop: 10/03/18 14:07 Last Admin: 10/03/18 14:21 Dose: 4 mg Ondansetron HCl (Zofran) 4 mg IV NOW ONE Stop: 10/03/18 15:57 Last Admin: 10/03/18 16:01 Dose: 4 mg Pantoprazole Sodium (Protonix) 40 mg IV NOW ONE Stop: 10/03/18 14:07 Last Admin: 10/03/18 14:36 Dose: 40 mg Tramadol HCl (Ultram) 100 mg PO NOW ONE Stop: 10/03/18 18:36 Last Admin: 10/03/18 18:50 Dose: 100 mg Vital Signs - 8 hr 10/03/18 14:49 10/03/18 15:00 10/03/18 16:00 Temperature Pulse Rate 96 H 99 H 92 H Respiratory Rate 18 13 13 Blood Pressure [Left Arm] 115/73 103/67 107/56 L Pulse Oximetry 97 98 99 10/03/18 18:52 10/03/18 19:29 Temperature 98.2 F Pulse Rate 95 H 80 Respiratory Rate 18 13 Blood Pressure [Left Arm] 103/62 98/59 L Pulse Oximetry 98 99 MDM - Abdominal Pain <Lisette Razo PA-C - Last Filed: 10/03/18 21:56> Lab Data Attestation: I reviewed the patient's lab results. Result diagrams: 10/03/18 14:15 10/03/18 14:15 Lab Results 10/03/18 10/03/18 10/03/18 Range/Units 14:15 14:15 15:30 WBC 9.2 (4.5-11.0) X10^3/uL RBC 4.73 (4.0-5.2) X10^6/uL Hgb 14.5 (12.0-16.0) g/dL Hct 43.9 (36-46) % MCV 92.9 (80-100) fL MCH 30.7 (26-34) PG MCHC 33.0 (30-36) % RDW 13.1 (11.6-14.8) % Plt Count 240 (150-400) X10^3/uL Neut % (Auto) 66.7 (50-75) % Lymph % (Auto) 26.2 (25-40) % [place] % (Auto) 5.4 (3-14) % Eos % (Auto) 0.9 L (2-4) % Baso % (Auto) 0.8 (0-2) % Neut # (Auto) 6200 (7979-6770) /uL Lymph # (Auto) 2400 (2564-3443) /uL [place] # (Auto) 500 (0-900) /uL Eos # (Auto) 100 (0-450) /uL Baso # (Auto) 100 (0-100) /uL Sodium 140 (137-145) mmol/L Potassium 4.0 (3.4-5.1) mmol/L Chloride 107 (98-107) mmol/L Carbon Dioxide 17 L (22-32) mmol/L BUN 11 (7-17) mg/dL Creatinine 0.80 (0.52-1.04) mg/dL Estimated GFR > 60.0 (>60) mL/min BUN/Creatinine Ratio 13.8 (6-22) Glucose 78 (70-100) mg/dL Calcium 9.0 (8.4-10.2) mg/dL Total Bilirubin 0.3 (0.2-1.3) mg/dL AST 28 (14-36) IU/L ALT 23 (9-52) IU/L Alkaline Phosphatase 63 (38-126) U/L Total Protein 8.4 H (6.3-8.2) g/dL Albumin 5.0 (3.5-5.0) g/dL Globulin 3.4 (1.7-4.1) g/dL Albumin/Globulin Ratio 1.5 (1.0-2.8) Lipase 58 (23-300) U/L Urine RBC 1-5/hpf (0-5/HPF) Urine WBC 5-10/hpf H (0-5/HPF) Ur Squamous Epith Cells 1-5 /hpf (0-5/HPF) Urine Bacteria Moderate (10-30) H (None) Urine Mucus 2+ H (Negative) Ur Culture Indicated? Specimen cultured Point of care testing: Point of Care Testing Test Results Negative Urine Dip Bedside Urine Glucose Negative Bedside Urine Bilirubin + 1 Bedside Urine Ketone + 15 Urine Specific [place] 1.030 Bedside Urine Occult Blood +/- Bedside Urine pH 6.0 Bedside Urine Protein + 30 Bedside Urine Urobilinogen +/- 1mg Bedside Urine Nitrite - Negative Bedside Urine Leukocytes - Negative Esterase Imaging Data US - abdomen: Radiologist's impression: Chart Viewer Diagnostics DATE TYPE STATUS AUTHOR Hx 10/03/18 15:56 Greg Wood 01/19/18 00:53 Sid Ulloa 01/19/18 00:10 Sid Ulloa Tonna K 37, F1980 DEP ER, ED.LOC - Main ED 62.596kg Abdominal Pain Search Chart RASH EMESIS ONSET Today 19:29 Latrell Molina 37 F [address] [address] Ultrasound Report Signed Patient: Latrell Molina KMR#: [id number] : 1980Acct:[id number] Age/Sex: 37 / FDate of Service: 10/03/18 Loc: ED Accession Number: [id number] Procedure: US abdomen complete Ordering Provider: Fishfader,Lisette P.A-C PROCEDURE: US ABDOMEN COMPLETE INDICATIONS: LUQ PAIN (CT DONE AT [facility] LAST WEEK) TECHNIQUE: Real-time scanning was performed of the abdominal and retroperitoneal organs, with image documentation. COMPARISON: Correlation is made with [facility] CT 09/27/18 [facility], CT, CT ABDOMEN PELVIS W CON, 01/19/2018, 1:05. [facility], US, ABDOMEN COMPLETE, 01/22/2014, 17:11. FINDINGS: Liver: Liver is normal in size and homogeneous in echotexture. Gallbladder: The No findings of gallstones or sludge are seen. The gallbladder wall is not thickened, measuring 3 mm or less. No specific pericholecystic fluid is seen. The sonographic Pickens sign is negative. Biliary ducts: Intrahepatic bile ducts are non-dilated. Extrahepatic bile duct caliber measures 3 mm. Normal is 6-7 mm or less in diameter, or 10 mm or less post-cholecystectomy. Pancreas: Visualized portions of the pancreas are sonographically normal. Spleen: Spleen is normal in size and homogeneous in echotexture. Kidneys: Kidneys are normal in size and echotexture. Right kidney measures 9.5 cm long; left kidney measures 9.8 cm long. No hydronephrosis or nephrolithiasis. No solid masses. A 1.2 cm simple appearing renal cyst is seen on the left laterally. The renal cortex on both sides appears thinned. Aorta: Visualized aorta is normal in caliber at less than 3 cm. Iliacs: Proximal common iliac arteries are normal in caliber at less than 2.5 c m. IVC: Intrahepatic inferior vena cava is patent. Miscellaneous: No free abdominal fluid. IMPRESSION: No imaging explanation is found for this patient's presenting history of left upper quadrant pain. The gallbladder demonstrates a normal sonographic appearance. No biliary dilatation is seen. Simple appearing 1.2 cm renal cyst seen. Thinning of the renal cortex can be seen on both sides. Dictated by: Greg Wood M.D. on 10/03/2018 at 16:27 Approved by: Greg Wood M.D. on 10/03/2018 at 16:30 <Salomón White DO - Last Filed: 10/06/18 07:07> Lab Data Lab Results 10/03/18 10/03/18 10/03/18 Range/Units 14:15 14:15 15:30 WBC 9.2 (4.5-11.0) X10^3/uL RBC 4.73 (4.0-5.2) X10^6/uL Hgb 14.5 (12.0-16.0) g/dL Hct 43.9 (36-46) % MCV 92.9 (80-100) fL MCH 30.7 (26-34) PG MCHC 33.0 (30-36) % RDW 13.1 (11.6-14.8) % Plt Count 240 (150-400) X10^3/uL Neut % (Auto) 66.7 (50-75) % Lymph % (Auto) 26.2 (25-40) % [place] % (Auto) 5.4 (3-14) % Eos % (Auto) 0.9 L (2-4) % Baso % (Auto) 0.8 (0-2) % Neut # (Auto) 6200 (0163-1824) /uL Lymph # (Auto) 2400 (5718-8206) /uL [place] # (Auto) 500 (0-900) /uL Eos # (Auto) 100 (0-450) /uL Baso # (Auto) 100 (0-100) /uL Sodium 140 (137-145) mmol/L Potassium 4.0 (3.4-5.1) mmol/L Chloride 107 (98-107) mmol/L Carbon Dioxide 17 L (22-32) mmol/L BUN 11 (7-17) mg/dL Creatinine 0.80 (0.52-1.04) mg/dL Estimated GFR > 60.0 (>60) mL/min BUN/Creatinine Ratio 13.8 (6-22) Glucose 78 (70-100) mg/dL Calcium 9.0 (8.4-10.2) mg/dL Total Bilirubin 0.3 (0.2-1.3) mg/dL AST 28 (14-36) IU/L ALT 23 (9-52) IU/L Alkaline Phosphatase 63 (38-126) U/L Total Protein 8.4 H (6.3-8.2) g/dL Albumin 5.0 (3.5-5.0) g/dL Globulin 3.4 (1.7-4.1) g/dL Albumin/Globulin Ratio 1.5 (1.0-2.8) Lipase 58 (23-300) U/L Urine RBC 1-5/hpf (0-5/HPF) Urine WBC 5-10/hpf H (0-5/HPF) Ur Squamous Epith Cells 1-5 /hpf (0-5/HPF) Urine Bacteria Moderate (10-30) H (None) Urine Mucus 2+ H (Negative) Ur Culture Indicated? Specimen cultured Point of care testing: Point of Care Testing Test Results Negative Urine Dip Bedside Urine Glucose Negative Bedside Urine Bilirubin + 1 Bedside Urine Ketone + 15 Urine Specific [place] 1.030 Bedside Urine Occult Blood +/- Bedside Urine pH 6.0 Bedside Urine Protein + 30 Bedside Urine Urobilinogen +/- 1mg Bedside Urine Nitrite - Negative Bedside Urine Leukocytes - Negative Esterase Discharge Plan Departure Patient Disposition: Home Clinical Impression: Left upper quadrant abdominal pain of unknown etiology, Pyelonephritis Discharge Date/Time: 10/03/18 19:55 Interventions: ED Discharge Assessment Last Done: 10/03/18 19:53 Instructions: DI for Kidney Infection, DI for Abdominal Pain-Adult Activity Restrictions/Additional Instructions: As we discussed, you should return if you have any acutely worsening symptoms again, or unable to keep down your antibiotics (you are not due for another dose until early tomorrow evening), or if you have new symptoms such as fever. Otherwise, please continue the antibiotic Levofloxacin once daily to cover for kidney infection. There were no acute findings on your blood or or ultrasound today, but you did have bacteria in your urine. This does not explain your chronic left-sided pain that you have had recently, nor did the testing you had last week at [facility]. Please be sure to follow up with your PCP on Saturday to assess your progress, and determine where to go with further testing and referral. Please continue your other usual medicines. Prescriptions: New levofloxacin [Levaquin] 750 mg tablet 750 mg PO DAILY 6 Days RF: 0 No Action sucralfate [Carafate] 100 mg/mL suspension 1 g PO [id number] RF: 0 omeprazole 40 mg capsule,delayed release(DR/EC) 40 mg PO [id number] RF: 0 tramadol 50 mg tablet 50 mg PO Q6H PRN (Reason: pain) RF: 0 Referrals: Gia Gonzales MD [Non-Staff] - <DO Kelley Francois Last Filed: 10/06/18 07:07> Cosign ED Attending Cosignature Attestation: I was immediately available in the department for consultation. Documentation has been reviewed. I agree with assessment and plan.
[2018-10-03] MEDS: KETOROLAC 60 MG/2 ML VIAL 30 MG IV (14:35)
[2018-10-03 14:36] LABS: Add Manual Diff / Slide Review NO; Basophils Absolute Auto 100 /uL (0-100); Basophils Percent Auto 0.8 % (0-2); Eosinophils Absolute Auto 100 /uL (0-450); Eosinophils Percent Auto 0.9 % (2-4); Hematocrit 43.9 % (36-46); Hemoglobin 14.5 g/dL (12.0-16.0); Lymphocytes Absolute Auto 2400 /uL (1100-4500); Lymphocytes Percent Auto 26.2 % (25-40); Mean Corpuscular Hemoglobin 30.7 PG (26-34); Mean Corpuscular Volume 92.9 fL (80-100); Monocytes Absolute Auto 500 /uL (0-900); Monocytes Percent Auto 5.4 % (3-14); Neutrophils Absolute Auto 6200 /uL (1500-7000); Neutrophils Percent Auto 66.7 % (50-75); Platelet Count 240 X10^3/uL (150-400); Red Blood Cell Count 4.73 X10^6/uL (4.0-5.2); Red Cell Distribution Width 13.1 % (11.6-14.8); White Blood Cell Count 9.2 X10^3/uL (4.5-11.0)
[2018-10-03] MEDS: PANTOPRAZOLE 40 MG VIAL IV (14:36)
[2018-10-03 14:48] LABS: Alanine Aminotransferase 23 IU/L (9-52); Albumin Globulin Ratio 1.5 (1.0-2.8); Alkaline Phosphatase 63 U/L (38-126); Aspartate Aminotransferase 28 IU/L (14-36); BUN Creatinine Ratio 13.8 (6-22); Bilirubin Total 0.3 mg/dL (0.2-1.3); Blood Urea Nitrogen 11 mg/dL (7-17); Carbon Dioxide 17 mmol/L (22-32); Chloride 107 mmol/L (98-107); Estimated Glomerular Filt Rate > 60.0 mL/min (>60); Globulin 3.4 g/dL (1.7-4.1); Glucose 78 mg/dL (70-100); HEMOLYSIS < 15 (0-50); Lipase 58 U/L (23-300); Sodium 140 mmol/L (137-145); Total Protein 8.4 g/dL (6.3-8.2)
[2018-10-03 14:49] VITALS: BP 115/73; PULSE 96; RESP 18; O2SAT 97
[2018-10-03 15:00] VITALS: BP 103/67; PULSE 99; RESP 13; O2SAT 98
[2018-10-03 15:53] LABS: Bacteria Urine Moderate (10-30); Culture Indicated Urine Specimen Cultured; Mucus Urine 2+ (Negative); RBC Urine 1-5/HPF (0-5/HPF); Squamous Epithelial Cell Urine 1-5 /HPF (0-5/HPF); WBC Urine 5-10/HPF (0-5/HPF)
--- NOTE | 2018-10-03 15:56 | DI.US.S_ITS ---
PROCEDURE: US ABDOMEN COMPLETE INDICATIONS: LUQ PAIN (CT DONE AT [facility] LAST WEEK) TECHNIQUE: Real-time scanning was performed of the abdominal and retroperitoneal organs, with image documentation. COMPARISON: Correlation is made with [facility] CT 09/27/18 [facility], CT, CT ABDOMEN PELVIS W CON, 01/19/2018, 1:05. [facility], US, ABDOMEN COMPLETE, 01/22/2014, 17:11. FINDINGS: Liver: Liver is normal in size and homogeneous in echotexture. Gallbladder: The No findings of gallstones or sludge are seen. The gallbladder wall is not thickened, measuring 3 mm or less. No specific pericholecystic fluid is seen. The sonographic Pickens sign is negative. Biliary ducts: Intrahepatic bile ducts are non-dilated. Extrahepatic bile duct caliber measures 3 mm. Normal is 6-7 mm or less in diameter, or 10 mm or less post-cholecystectomy. Pancreas: Visualized portions of the pancreas are sonographically normal. Spleen: Spleen is normal in size and homogeneous in echotexture. Kidneys: Kidneys are normal in size and echotexture. Right kidney measures 9.5 cm long; left kidney measures 9.8 cm long. No hydronephrosis or nephrolithiasis. No solid masses. A 1.2 cm simple appearing renal cyst is seen on the left laterally. The renal cortex on both sides appears thinned. Aorta: Visualized aorta is normal in caliber at less than 3 cm. Iliacs: Proximal common iliac arteries are normal in caliber at less than 2.5 cm. IVC: Intrahepatic inferior vena cava is patent. Miscellaneous: No free abdominal fluid. IMPRESSION: No imaging explanation is found for this patient's presenting history of left upper quadrant pain. The gallbladder demonstrates a normal sonographic appearance. No biliary dilatation is seen. Simple appearing 1.2 cm renal cyst seen. Thinning of the renal cortex can be seen on both sides. Dictated by: Greg Wood M.D. on 10/03/2018 at 16:27 Approved by: Greg Wood M.D. on 10/03/2018 at 16:30
[2018-10-03 16:00] VITALS: BP 107/56; PULSE 92; RESP 13; O2SAT 99
[2018-10-03] MEDS: CYCLOBENZAPRINE 10 MG TABLET PO (16:01)
[2018-10-03] MEDS: SODIUM CHLORIDE 0.9% IV (17:54)
[2018-10-03] MEDS: LIDOCAINE 2% IV (17:54)
[2018-10-03] MEDS: levoFLOXacin 250 MG TABLET 750 MG PO (18:21)
[2018-10-03] MEDS: TRAMADOL 50 MG TABLET 100 MG PO (18:50)
[2018-10-03 18:52] VITALS: BP 103/62; PULSE 95; RESP 18; TEMP 36.8; O2SAT 98
[2018-10-03 19:29] VITALS: BP 98/59; PULSE 80; RESP 13; O2SAT 99
== END 2018-10-03 19:55 | disposition home or self-care (01) ==
PROVIDERS: Emergency Provider Internal Medicine; Family Provider Family Medicine; PCP Family Medicine
DX: N12 Tubulo-interstitial nephritis, not specified as acute or chronic (principal); R10.12 Left upper quadrant pain; R11.10 Vomiting, unspecified
CPT/HCPCS: 76700; 80053; 81003; 81015; 81025; 83690; 85025; 87077; 87086; 87186; 96361; 96365; 96375; 96376; 99284; C9113; J1885; J2405

== ENCOUNTER 2019-03-20 21:32 | Emergency (ER) | payer OTHER, MEDICAID, SELFPAY ==
[2019-03-20 21:41] VITALS: BP 124/60; PULSE 103; RESP 20; TEMP 37.2; O2SAT 100
--- NOTE | 2019-03-20 22:31 | ED.FEVER ---
HPI - Fever General Chief Complaint: Fever Stated Complaint: COUGH FEVER SOB Time Seen by Provider: 03/20/19 22:27 Source: patient Mode of arrival: Ambulatory History of Present Illness HPI Narrative: Patient is a 38-year-old female who presents with cough and upper respiratory like symptoms. She has a history of asthma she does have an inhaler but she lost it. She feels short of breath when she walks she has had some body aches as well. No chest pain. He is afebrile here in the ED Related Data Home Medications Medication Instructions Recorded Confirmed omeprazole 40 mg PO [id number] 10/03/18 10/03/18 sucralfate [Carafate] 1 g PO [id number] 10/03/18 10/03/18 tramadol 50 mg PO Q6H PRN 10/03/18 10/03/18 Allergies Allergy/AdvReac Type Severity Reaction Status Date / Time codeine Allergy Mild RASH Verified 10/03/18 13:41 ibuprofen AdvReac Mild EMESIS Verified 10/03/18 13:41 Review of Systems Review of Systems ROS Unobtainable: All systems reviewed & are unremarkable except as noted in HPI and below Constitutional Constitutional: Reports chills, Reports fatigue, Reports fever(s), Denies lethargy and Denies weakness ENT Ears, Nose, Mouth, and Throat: Denies change in voice, Denies neck pain and Denies sore throat Gastrointestinal Gastrointestinal: Denies abdominal pain, Denies change in bowel habits, Denies diarrhea, Denies nausea and Denies vomiting Genitourinary Genitourinary: Denies hematuria, Denies flank pain, Denies urinary incontinence and Denies urinary urgency Musculoskeletal Musculoskeletal: Denies neck pain Neurologic Neurologic: Denies weakness Endocrine Endocrine: Reports fatigue Patient History Medical History Chronic pain in right shoulder (Chronic) Degenerative joint disease of cervical spine (Chronic) H/O renal calculi (Resolved) Migraine (Chronic) Surgical History Status post (Resolved) Status post shoulder surgery (Resolved) Status post wrist surgery (Resolved) Family History Other Migraine Social History (Reviewed 03/20/19 @ 22:32 by KAJAL Eagle Smoking Status: Current every day smoker alcohol intake frequency: holidays/special occasions only Substance Use Type: does not use Exam Initial Vital Signs Initial Vital Signs: Vital Signs Temperature 98.9 F 03/20/19 21:41 Pulse Rate 103 H 03/20/19 21:41 Respiratory Rate 20 03/20/19 21:41 Blood Pressure 124/60 03/20/19 21:41 Pulse Oximetry 100 03/20/19 21:41 GENERAL: Well-appearing, well-nourished and in no acute distress. HEENT: Head atraumatic,EOMI, pupils reactive, face symmetric CARDIOVASCULAR: Regular rate and rhythm without murmurs, rubs or gallops. RESPIRATORY: Clear bilaterally no wheezes rales or rhonchi speaks in full sentences. She does cough bronchospastic like cough. ABDOMEN: Soft, nontender. Normoactive bowel sounds all 4 quadrants. No guarding or rebound. EXTREMITIES: Normal range of motion, no clubbing or edema. Neurovascularly intact NEUROLOGICAL: Alert and oriented x4.Normal gait and speech. Cranial nerves II through XII grossly intact. SKIN: Warm, dry, no laceration, no petechiae, no rashes or lesions. Course Orders Ordered: Discontinued Medications Albuterol (Ventolin Hfa Prepack) 1 box MISC SEEINSTR ONE Stop: 03/20/19 22:36 Last Admin: 03/20/19 22:44 Dose: 1 box Documented by: SHELBY Albuterol/Ipratropium (Duoneb) 3 ml INH NOW ONE Stop: 03/20/19 22:31 Last Admin: 03/20/19 22:44 Dose: 3 ml Documented by: SHELBY Vital Signs Vital signs: Vital Signs - 8 hr 03/20/19 21:41 03/20/19 22:44 03/20/19 23:19 Temperature 98.9 F Pulse Rate 103 H 86 70 Respiratory Rate 20 18 14 Blood Pressure 124/60 Blood Pressure [Left Arm] 103/61 Pulse Oximetry 100 100 99 MDM - Fever MDM Narrative Medical decision making narrative: She overall much better after albuterol. She has no signs of respiratory distress all lungs are clear at this time no indication for antibiotics or imaging. She has upper respiratory like symptoms consistent with viral etiology. Discharge Plan Departure Patient Disposition: Home Clinical Impression: Upper respiratory infection Qualifiers: URI type: unspecified viral URI Qualified Code(s): J06.9 - Acute upper respiratory infection, unspecified Discharge Date/Time: 03/20/19 23:25 Instructions: DI for Viral Upper Respiratory Infection -- Adult Activity Restrictions/Additional Instructions: *You have been diagnosed with upper respiratory infection *What to do: Increase fluid intake, fever control *Continue to take medications as directed Albuterol inhaler 1-2 puffs every 4 hours if needed for coughing spells or difficulty breathing *Follow up with your primary care provider in 2-3 days *Return to ER if you should have increasing shortness of breath, fever not controlled or any new, worsening or concerning symptoms Prescriptions: No Action sucralfate [Carafate] 100 mg/mL suspension 1 g PO [id number] RF: 0 omeprazole 40 mg capsule,delayed release(DR/EC) 40 mg PO [id number] RF: 0 tramadol 50 mg tablet 50 mg PO Q6H PRN (Reason: pain) RF: 0 Stand Alone Forms: Work Release Note
[2019-03-20 22:44] VITALS: PULSE 86; RESP 18; O2SAT 100
[2019-03-20] MEDS: ALBUTEROL HFA PREPACK 1 BOX MISC (22:44)
[2019-03-20] MEDS: ALBUTEROL/IPRATROPIUM 3 ML AMPUL INH (22:44)
[2019-03-20 23:19] VITALS: BP 103/61; PULSE 70; RESP 14; O2SAT 99
== END 2019-03-20 23:25 | disposition home or self-care (01) ==
PROVIDERS: Emergency Provider Emergency Medicine
DX: J06.9 Acute upper respiratory infection, unspecified (principal)
CPT/HCPCS: 94640; 99282; 99283

== ENCOUNTER 2019-04-15 19:16 | Emergency (ER) | payer OTHER, SELFPAY ==
[2019-04-15 19:25] VITALS: BP 122/71; PULSE 106; RESP 16; O2SAT 98; BMI 26.9
--- NOTE | 2019-04-15 20:52 | ED_ITS ---
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 She states the area is painful when she wipes after urination. She denies any history of Bartholin cysts, vaginal discharge, dysuria, nausea, vomiting, diarrhea, or other concerns. She denies any concerns for STIs. She denies . Related Data Home Medications Medication Instructions Recorded Confirmed omeprazole 40 mg PO [id number] 10/03/18 10/03/18 sucralfate [Carafate] 1 g PO [id number] 10/03/18 10/03/18 tramadol 50 mg PO Q6H PRN 10/03/18 10/03/18 Previous Rx's Medication Instructions Recorded sulfamethoxazole-trimethoprim 1 tab PO BID 7 Days #14 tab 04/15/19 [Bactrim DS] Allergies Allergy/AdvReac Type Severity Reaction Status Date / Time codeine Allergy Mild RASH Verified 10/03/18 13:41 ibuprofen AdvReac Mild EMESIS Verified 10/03/18 13:41 Review of Systems <ALECIA Cheng - Last Filed: 04/15/19 21:03> Review of Systems Narrative: REVIEW OF SYSTEMS: GENERAL: Denies fever, chills, malaise, or wt. loss. HENT: No head trauma, sore throat, or dysphagia. EYES: No loss of vision, double vision, eye pain, or irritation. CARDIOVASCULAR: No chest pain, palpitations, or orthopnea. RESPIRATORY: No shortness of breath or cough. GASTROINTESTINAL: Denies abdominal pain, nausea, diarrhea, see HPI. GENITOURINARY: No flank pain, urinary incontinence, hesitancy, frequency, or dysuria. No vaginal discharge or dyspareunia. Denies concerns for STIs. Reports swelling of right labia, see HPI. MUSCULOSKELETAL: No pain, weakness, or trauma. INTEGUMENTARY: No rash, lesions, or pruritus. NEURO: No numbness, tingling, memory loss, confusion, or headaches. PSYCH: No behavior or mood changes. Patient History <RANJITH ChengP - Last Filed: 04/15/19 21:03> alcohol intake frequency: holidays/special occasions only Alcohol type: beer Substance Use Type: does not use Exam <ALECIA Cheng - Last Filed: 04/15/19 21:03> Initial Vital Signs Initial Vital Signs: Vital Signs Pulse Rate 106 H 04/15/19 19:25 Respiratory Rate 16 04/15/19 19:25 Blood Pressure 122/71 04/15/19 19:25 Pulse Oximetry 98 04/15/19 19:25 PHYSICAL EXAMINATION: GENERAL: Well groomed, alert, and cooperative. Answers questions promptly and appropriately. Vital signs noted. HENT: Normocephalic, atraumatic. Hearing intact. Oral mucosa is pink and moist. EYES: Conjunctiva pink, sclera white, no periorbital swelling. CARDIOVASCULAR: S1 and S2 sounds normal. Regular rate and rhythm, no murmurs, clicks, or bruits. No pedal edema. RESPIRATORY: Normal respiratory rate, trachea midline, airway patent. No stridor, nasal flaring or accessory muscle use. Lungs are clear in all arias without wheeze, rhonchi, or crackles. GASTROINTESTINAL: Bowel sounds normoactive. Abdomen is soft and non-tender. No organomegaly, no palpable masses. GENITALURINARY: No flank tenderness. Slight swollen of right external labia, very small < 0.5cm palpation of induration without fluctuation or lesions. Exam was performed with BENCH ASSEMBLER OPERATOR at bedside. No vaginal discharge. MUSCULOSKELETAL: Normal gait and coordination. Equal tone and mass bilaterally. EXTREMITIES: CMS intact, no pedal edema. SKIN: Warm, dry, soft, appropriate color for ethnicity. No lesions, rashes, or wounds. NEURO: Alert and Oriented X 3. Good coordination. No ataxia, or sensory deficits, or cognitive issues. PSYCH: Appropriate affect and mood. <Salomón White DO - Last Filed: 04/16/19 00:34> Initial Vital Signs Initial Vital Signs: Vital Signs Pulse Rate 106 H 04/15/19 19:25 Respiratory Rate 16 04/15/19 19:25 Blood Pressure 122/71 04/15/19 19:25 Pulse Oximetry 98 04/15/19 19:25 Course <ALECIA Cheng - Last Filed: 04/15/19 21:03> Consultations Consultation #1: Patient staffed with Dr. White. Vital Signs Vital signs: Vital Signs - 8 hr 04/15/19 19:25 Pulse Rate 106 H Respiratory Rate 16 Blood Pressure 122/71 Pulse Oximetry 98 <Salomón White DO - Last Filed: 04/16/19 00:34> Vital Signs Vital signs: Vital Signs - 8 hr 04/15/19 19:25 Pulse Rate 106 H Respiratory Rate 16 Blood Pressure 122/71 Pulse Oximetry 98 MDM - Female Genitourinary <ALECIA Cheng - Last Filed: 04/15/19 21:03> Medical Records Attestation: I reviewed the patient's medical records. Lab Data Attestation: I reviewed the patient's lab results. MDM Narrative Medical decision making narrative: This is a 38-year-old female who presents emergency department for swelling of right labia without definite visualization of an abscess or Bartholin cysts. However, due to slight swelling and tenderness on examination am concerned for an infection of Bartholin cysts. Differential also includes urinary tract infection (less likely due to lack of dysuria, flank pain, urinary frequency). Less likely STDs, lack of vaginal discharge, itching, and patient denies any high risk activities. Patient was placed on Bactrim which covers for MRSA which is often involved and Bartholin c yst infection an oval cover urinary tract infections. Patient was encouraged to follow up with production grip in the next week for re-evaluation. She is instructed to monitor the area closely for any swelling or lumps and seek care if this occurs. Discharge Plan Departure Patient Disposition: Home Clinical Impression: Infected cyst of Bartholin's gland duct Discharge Date/Time: 04/15/19 19:50 Instructions: DI for Bartholin Gland Cyst Activity Restrictions/Additional Instructions: Thank you for entrusting me with your care today. As discussed, it appears had the beginnings of an infected Bartholin gland/cyst. I prescribed an antibiotic, please take these as directed. Follow up with a production grip in the next 1-2 weeks for re-evaluation. Return emergency department for worsening symptoms such as high fevers, uncontrollable vomiting, abdominal pain, chest pain, shortness of breath, or other concerns. Prescriptions: New sulfamethoxazole-trimethoprim [Bactrim DS] 800-160 mg tablet 1 tab PO BID 7 Days Qty: 14 RF: 0 No Action sucralfate [Carafate] 100 mg/mL suspension 1 g PO [id number] RF: 0 omeprazole 40 mg capsule,delayed release(DR/EC) 40 mg PO [id number] RF: 0 tramadol 50 mg tablet 50 mg PO Q6H PRN (Reason: pain) RF: 0
== END 2019-04-15 19:50 | disposition home or self-care (01) ==
PROVIDERS: Emergency Provider Nurse Practitioner
DX: N75.0 Cyst of Bartholin's gland (principal)
CPT/HCPCS: 99282

== ENCOUNTER 2020-01-12 20:43 | Emergency (ER) | payer OTHER, SELFPAY ==
[2020-01-12] VITALS (8 sets, daily range): BP systolic 96–133; BP diastolic 56–74; PULSE 75–96; RESP 11–18; TEMP 37.1; O2SAT 98–100
--- NOTE | 2020-01-12 20:58 | ED.GENADULT ---
HPI - General Adult General Chief complaint: Abdominal Pain Stated complaint: kidney pain Time Seen by Provider: 01/12/20 20:54 Source: patient Mode of arrival: Ambulatory Limitations: no limitations History of Present Illness HPI narrative: Patient is a 39-year-old female here for evaluation of left-sided flank pain. Patient states that she thinks that she has a kidney stone. She states that this morning at approximately 0800 hours she started having dysuria which include burning in frequency and pain with urination. Approximately 0200 hours in the afternoon she started having pain in her left flank which she states he was very similar to a kidney stone that she had approximately 10 years ago. She was seen her primary doctor today. She states she was diagnosed with the urinary tract infection. Was started on Macrobid. She comes emergency department today because her pain is not controlled on her tramadol which she takes at home for other reasons. Related Data Home Medications Medication Instructions Recorded Confirmed omeprazole 40 mg PO [id number] 10/03/18 10/03/18 sucralfate [Carafate] 1 g PO [id number] 10/03/18 10/03/18 tramadol 50 mg PO Q6H PRN 10/03/18 10/03/18 Previous Rx's Medication Instructions Recorded levofloxacin [Levaquin] 750 mg PO DAILY 4 Days #4 tab 01/12/20 Allergies Allergy/AdvReac Type Severity Reaction Status Date / Time codeine Allergy Mild RASH Verified 10/03/18 13:41 ibuprofen AdvReac Mild EMESIS Verified 10/03/18 13:41 Review of Systems Constitutional Constitutional: Denies fever(s) and Denies headache(s) ENT Ears, Nose, Mouth, and Throat: Denies headache(s) Cardiovascular Cardiovascular: Denies chest pain and Denies dyspnea Respiratory Respiratory: Denies dyspnea Gastrointestinal Gastrointestinal: Reports abdominal pain (Left-sided flank pain), Denies change in bowel habits, Reports nausea and Denies vomiting Genitourinary Genitourinary: Reports hematuria, Reports dysuria, Reports urinary hesitancy and Reports urinary urgency Genitourinary: Reports hematuria, Reports dysuria, Reports urinary hesitancy and Reports urinary urgency Musculoskeletal Musculoskeletal: Reports back pain (Left flank) and Denies myalgias Integumentary/Breasts Skin/Breast: Denies lesions and Denies rash Neurologic Neurologic: Denies behavioral changes and Denies headache(s) Psychiatric Psychiatric: Denies behavioral changes Hematologic/Lymphatic Hematologic/Lymphatic: Denies easy bleeding and Denies easy bruising Allergic/Immunologic Allergic/Immunologic: Denies urticaria Patient History Medical History Chronic pain in right shoulder (Chronic) Degenerative joint disease of cervical spine (Chronic) H/O renal calculi (Resolved) Migraine (Chronic) Surgical History Status post (Resolved) Status post shoulder surgery (Resolved) Status post wrist surgery (Resolved) Family History Other Migraine Social History Smoking Status: Current every day smoker Smoking Status: Current every day smoker alcohol intake frequency: holidays/special occasions only Alcohol type: beer Substance Use Type: does not use Exam Initial Vital Signs Initial Vital Signs: Vital Signs Temperature 98.8 F 01/12/20 20:48 Pulse Rate 79 01/12/20 20:48 Respiratory Rate 18 01/12/20 20:48 Blood Pressure 133/68 01/12/20 20:48 Pulse Oximetry 98 01/12/20 20:48 Const General: cooperative Limitations: mental status not altered HENMT Head: normal to inspection and normocephalic Resp Effort & Inspection: normal respiratory effort Cardio Rate: regular rate GI Inspection: non-distended Palpation: soft and No tender Back/Spine/Pelvis Back: CVA tenderness left Skin Lesions: no lesions Rashes: no rashes Neuro General: patient alert and patient awake Extrem General: capillary refill normal Psych Appearance: grossly normal and well kempt Course Orders Ordered: ED Orders 01/12/20 21:15 Urine Culture Stat Urine Culture Stat Urine Microscopic Stat 01/12/20 21:18 CT kidney ureter bladder (KUB) Stat 01/12/20 21:20 Basic Metabolic Panel Stat Complete Blood Count AUTO DIFF Stat Discontinued Medications Hydrocodone Bitart/Acetaminophen ([place] 5/325) 1 tab PO NOW ONE Stop: 01/12/20 22:53 Last Admin: 01/12/20 23:06 Dose: 1 tab Documented by: LYNN Hydrocodone Bitart/Acetaminophen ([place] 5/325 Prepack) 1 bottle MISC SEEINSTR ONE Stop: 01/12/20 22:53 Last Admin: 01/12/20 23:06 Dose: 1 bottle Documented by: LYNN Lidocaine HCl 4.4 ml/ Sodium (Chloride) 54.4 mls @ 326.4 mls/hr IV NOW ONE Stop: 01/12/20 21:18 Last Infusion: 01/12/20 22:00 Dose: 0 mls/hr Documented by: Admin: 01/12/20 21:25 Dose: 326.4 mls/hr Documented by: ISABELLEFARL Levofloxacin (Levaquin) 750 mg PO NOW ONE Stop: 01/12/20 22:53 Last Admin: 01/12/20 23:06 Dose: 750 mg Documented by: LYNN Vital Signs Vital signs: Vital Signs - 8 hr 01/12/20 20:48 01/12/20 21:12 01/12/20 21:13 Temperature 98.8 F Pulse Rate 79 96 H 93 H Respiratory Rate 18 12 11 L Blood Pressure 133/68 127/74 Pulse Oximetry 98 100 01/12/20 21:30 01/12/20 22:01 01/12/20 22:02 Temperature Pulse Rate 79 83 81 Respiratory Rate 12 13 15 Blood Pressure 106/60 106/56 L Pulse Oximetry 99 100 100 01/12/20 22:30 01/12/20 23:00 Temperature Pulse Rate 75 75 Respiratory Rate 13 17 Blood Pressure 98/60 96/67 Pulse Oximetry 100 100 Medical Decision Making Lab Data Lab results reviewed: Yes I reviewed the patient's lab results. Result diagrams: 01/12/20 21:20 01/12/20 21:20 Labs: Lab Results 01/12/20 01/12/20 01/12/20 Range/Units 21:15 21:20 21:20 WBC 10.4 (4.5-11.0) X10^3/uL RBC 4.25 (4.0-5.2) X10^6/uL Hgb 13.4 (12.0-16.0) g/dL Hct 38.8 (36-46) % MCV 91.2 (80-100) fL MCH 31.5 (26-34) PG MCHC 34.6 (30-36) % RDW 13.0 (11.6-14.8) % Plt Count 236 (150-400) X10^3/uL Neut % (Auto) 65.0 (50-75) % Lymph % (Auto) 29.2 (25-40) % Isabela % (Auto) 3.6 (3-14) % Eos % (Auto) 1.4 L (2-4) % Baso % (Auto) 0.8 (0-2) % Neut # (Auto) 6800 (6812-0603) /uL Lymph # (Auto) 3100 (7786-2058) /uL Isabela # (Auto) 400 (0-900) /uL Eos # (Auto) 200 (0-450) /uL Baso # (Auto) 100 (0-100) /uL Sodium 137 (137-145) mmol/L Potassium 3.6 (3.4-5.1) mmol/L Chloride 106 (98-107) mmol/L Carbon Dioxide 24 (22-32) mmol/L BUN 12 (7-17) mg/dL Creatinine 0.79 (0.52-1.04) mg/dL Estimated GFR > 60.0 (>60) mL/min BUN/Creatinine Ratio 15.2 (6-22) Glucose 104 H (70-100) mg/dL Calcium 9.1 (8.4-10.2) mg/dL Urine RBC 5-10/hpf H (0-5/HPF) Urine WBC 5-10/hpf H (0-5/HPF) Ur Squamous Epith Cells 1-5 /hpf (0-5/HPF) Urine Bacteria Occasional (0-1) D (None) Ur Culture Indicated? Specimen cultured Point of Care Testing Test Results Negative Urine Dip Bedside Urine Glucose Negative Bedside Urine Bilirubin - Negative Bedside Urine Ketone - Negative Urine Specific [place] 1.015 Bedside Urine Occult Blood ++ Bedside Urine pH 6.0 Bedside Urine Protein - Negative Bedside Urine Urobilinogen - Negative Bedside Urine Nitrite - Negative Bedside Urine Leukocytes +/- 15 Esterase Point of care testing: Point of Care Testing Test Results Negative Urine Dip Bedside Urine Glucose Negative Bedside Urine Bilirubin - Negative Bedside Urine Ketone - Negative Urine Specific [place] 1.015 Bedside Urine Occult Blood ++ Bedside Urine pH 6.0 Bedside Urine Protein - Negative Bedside Urine Urobilinogen - Negative Bedside Urine Nitrite - Negative Bedside Urine Leukocytes +/- [address] scan - abdomen/pelvis: Radiologist's Impression: Minimal prominence of the left ureter without evidence of an obstructing stone. While nonspecific, this may relate to a recently passed stone or perhaps a urinary tract infection. This can be correlated with urinalysis and patient history. There is a 2 mm stone in the upper pole the left kidney. No evidence of bowel obstruction or free air. No pericolic inflammation. No evidence of appendicitis. MDM Narrative Medical decision making narrative: Patient arrived with a history of physical exam that could very well be related to a kidney stone however the CT scan does not show any ureteral stones. Does show mild prominence of the left ureter and given her dysuria that she had this morning this would be concerned for potential upper urinary tract infection. She is afebrile. Does not have a leukocytosis. The prominence of left ureter could also be related to recently passed stone given the fact that she states this feels like a prior kidney stone that she passed on her own approximately 10 years ago. Her kidney function is unremarkable. Given the presence of a potential upper urinary tract infection fell that Macrobid which she was prescribed earlier today is not an appropriate antibiotic for her. Will switch her to Levaquin which she has had in the past when she was diagnosed with pyelonephritis. She was given 1st dose here. Prescription for the remainder. Will send home with nausea medication. She was given return precautions and follow-up instructions. She expressed understanding and agreement. Discharge Plan Departure Patient Disposition: Home Clinical Impression: Acute left flank pain, Pyelonephritis Discharge Date/Time: 01/12/20 23:09 Instructions: DI for Kidney Infection Activity Restrictions/Additional Instructions: Stop taking the antibiotics you were given earlier today and start taking the new prescription that you were given this evening as directed. Take the other medications as directed as well. Contact your primary provider for follow-up. Your 1st dose of antibiotics was given here in the emergency department. Start taking the remainder of the antibiotic as directed. Return to the emergency department for any new or worsening symptoms Prescriptions: New levofloxacin [Levaquin] 750 mg tablet 750 mg PO DAILY 4 Days Qty: 4 RF: 0 No Action sucralfate [Carafate] 100 mg/mL suspension 1 g PO [id number] RF: 0 omeprazole 40 mg capsule,delayed release(DR/EC) 40 mg PO [id number] RF: 0 tramadol 50 mg tablet 50 mg PO Q6H PRN (Reason: pain) RF: 0 Stand Alone Forms: Work Release Note
--- NOTE | 2020-01-12 21:18 | DI.CT.S_ITS ---
PROCEDURE: CT KIDNEY URETER BLADDER (KUB) INDICATIONS: l side pain concern for stone TECHNIQUE: Noncontrast 5 mm thick sections acquired from the diaphragms to the symphysis. 5 mm thick coronal and sagittal reformats were then performed. For radiation dose reduction, the following was used: automated exposure control, adjustment of mA and/or kV according to patient size. COMPARISON: [facility], CT, KIDNEY/ URETER/BLADDER, 06/06/2013, 16:56. [facility], CT, KIDNEY/ URETER/BLADDER, 09/21/2012, 21:10. FINDINGS: Image quality: Excellent. Lung bases: Mild bibasilar atelectasis. Heart size is normal. Urinary system: Both kidneys are normal in size. There is a punctate 2 mm left nephrolith. No left-sided hydronephrosis. No right-sided kidney stones. No hydronephrosis or perinephric fat stranding. Both ureters appear non-dilated throughout their expected courses. However, there is mild prominence of the left ureter. Bladder wall thickness is normal; no calcified bladder stones. Other solid organs: Liver is normal in size. Gallbladder is decompressed but otherwise unremarkable. Pancreas is normal in contours. Spleen is normal in size. No adrenal nodules. Peritoneum and bowel: Unenhanced bowel loops demonstrate normal wall thickness and caliber. No free fluid or air. Normal appendix. Incidental note of duodenal diverticulum. Nodes and vessels: No retroperitoneal or mesenteric adenopathy by size criteria. Aorta and inferior vena cava are normal in caliber. Abdominal wall: No ventral hernias. There is a fat-containing umbilical hernia without acute inflammation. Pelvis: No free pelvic fluid. No inguinal hernias or adenopathy. Bones: No suspicious bony lesions. No vertebral body compression fractures. IMPRESSION: 1. A non-obstructing 2 mm left nephrolith. No hydronephrosis. Minimal prominence of the left ureter without ureteral stones. Findings may represent sequela of recently passed stone. No bladder calculi noted. 2. Normal appendix. 3. Otherwise, no acute abnormalities identified in the abdomen or pelvis. No significant discrepancy with the police shift commander radiology preliminary report. Dictated by: Asim Venegas M.D. on 01/13/2020 at 8:58 Approved by: Asim Venegas M.D. on 01/13/2020 at 9:30
[2020-01-12] MEDS: LIDOCAINE 2% 4.4 ML in SODIUM CHLORIDE 0.9% 50 ML 326.4 ML IV (21:25)
[2020-01-12 21:29] LABS: Add Manual Diff / Slide Review NO; Basophils Absolute Auto 100 /uL (0-100); Basophils Percent Auto 0.8 % (0-2); Eosinophils Absolute Auto 200 /uL (0-450); Eosinophils Percent Auto 1.4 % (2-4); Hematocrit 38.8 % (36-46); Hemoglobin 13.4 g/dL (12.0-16.0); Lymphocytes Absolute Auto 3100 /uL (1100-4500); Lymphocytes Percent Auto 29.2 % (25-40); Mean Corpuscular HGB Conc 34.6 % (30-36); Mean Corpuscular Hemoglobin 31.5 PG (26-34); Mean Corpuscular Volume 91.2 fL (80-100); Monocytes Absolute Auto 400 /uL (0-900); Monocytes Percent Auto 3.6 % (3-14); Neutrophils Absolute Auto 6800 /uL (1500-7000); Platelet Count 236 X10^3/uL (150-400); Red Blood Cell Count 4.25 X10^6/uL (4.0-5.2); White Blood Cell Count 10.4 X10^3/uL (4.5-11.0)
[2020-01-12 21:38] LABS: BUN Creatinine Ratio 15.2 (6-22); Blood Urea Nitrogen 12 mg/dL (7-17); Calcium 9.1 mg/dL (8.4-10.2); Carbon Dioxide 24 mmol/L (22-32); Chloride 106 mmol/L (98-107); Estimated Glomerular Filt Rate > 60.0 mL/min (>60); Glucose 104 mg/dL (70-100); HEMOLYSIS < 15 (0-50); Potassium 3.6 mmol/L (3.4-5.1); Sodium 137 mmol/L (137-145)
[2020-01-12 22:03] LABS: Bacteria Urine Occasional (0-1); Culture Indicated Urine Specimen Cultured; RBC Urine 5-10/HPF (0-5/HPF); Squamous Epithelial Cell Urine 1-5 /HPF (0-5/HPF); WBC Urine 5-10/HPF (0-5/HPF)
[2020-01-12] MEDS: levoFLOXacin 250 MG TABLET 750 MG PO (23:06)
[2020-01-12] MEDS: HYDROCODONE/ACET 5/325 PREPACK 1 BOTTLE MISC (23:06)
[2020-01-12] MEDS: HYDROCODONE/ACET 5/325 TABLET 1 TAB PO (23:06)
== END 2020-01-12 23:09 | disposition home or self-care (01) ==
PROVIDERS: Emergency Provider Emergency Medicine
DX: N12 Tubulo-interstitial nephritis, not specified as acute or chronic (principal); R10.9 Unspecified abdominal pain; R31.9 Hematuria, unspecified; R30.0 Dysuria
CPT/HCPCS: 36415; 74176; 80048; 81003; 81015; 81025; 85025; 87086; 96365; 99284

== ENCOUNTER 2022-08-17 21:11 | Emergency (ER) | payer OTHER, SELFPAY ==
[2022-08-17 21:18] VITALS: BP 134/67; PULSE 93; RESP 18; TEMP 37; O2SAT 100; BMI 27.9
--- NOTE | 2022-08-17 21:24 | DI.RAD.S_ITS ---
PROCEDURE: XR HUMERUS LT 2V INDICATIONS: injury, pain TECHNIQUE: 2 views of the humerus were acquired. COMPARISON: None. FINDINGS: Bones: No fractures or dislocations. No suspicious bony lesions. Soft tissues: No suspicious soft tissue calcifications. IMPRESSION: 1. No fracture or dislocation. Dictated by: Brian Gonzalez M.D. on 08/17/2022 at 22:41 Approved by: Brian Gonzalez M.D. on 08/17/2022 at 22:41
--- NOTE | 2022-08-17 21:24 | DI.RAD.S_ITS ---
PROCEDURE: XR SHOULDER LT MIN 2V INDICATIONS: injury, pain TECHNIQUE: 3 views of the shoulder were acquired. COMPARISON: [facility], , SHOULDER MINIMUM 2VIEW RIGHT, 11/04/2013, 12:35. FINDINGS: Bones: No fractures or dislocations. No suspicious bony lesions. Visualized ribs appear intact. Soft tissues: No suspicious soft tissue calcifications. IMPRESSION: 1. No fracture or dislocation. Dictated by: Brian Gonzalez M.D. on 08/17/2022 at 22:40 Approved by: Brian Gonzalez M.D. on 08/17/2022 at 22:41
[2022-08-17 22:00] VITALS: BP 131/61; PULSE 96; RESP 16; TEMP 37.2; O2SAT 99
--- NOTE | 2022-08-17 22:27 | ED_ITS ---
HPI - Extremity Injury (Upper) General Chief Complaint: Extremity Injury, Upper Stated Complaint: L shoulder pain, hurt at work Time Seen by Provider: 08/17/22 21:18 Source: patient Mode of arrival: Ambulatory History of Present Illness HPI narrative: 41-year-old female smoker with noncontributory medical history presents with family in the chief complaint of pain after an injury to her left upper arm. She states that she was at work and she turned quickly and struck her left upper arm and a hard object and now has pain particularly with range of motion. She denies any numbness, tingling or weakness. She did not fall or injure anything else. She denies any head neck or back problems. Her pain is worse when she moves and improves with rest. Related Data Home Medications Medication Instructions Recorded Confirmed omeprazole 40 mg capsule,delayed 40 mg PO [id number] 10/03/18 10/03/18 release sucralfate 100 mg/mL oral 1 g PO [id number] 10/03/18 10/03/18 suspension tramadol 50 mg tablet 50 mg PO Q6H PRN pain 10/03/18 10/03/18 Allergies Allergy/AdvReac Type Severity Reaction Status Date / Time codeine Allergy Mild RASH Verified 10/03/18 13:41 ibuprofen AdvReac Mild EMESIS Verified 10/03/18 13:41 Review of Systems Review of Systems Narrative: GENERAL: Denies chills, fatigue, malaise, fever, sweats. HEENT: Denies sinus pain, ear pain, sore throat, difficulty swallowing, dizziness. RESPIRATORY: Denies dyspnea, cough, wheezing, hemoptysis, sputum. CARDIOVASCULAR: Denies chest pain, palpitations, orthopnea, edema, GASTROINTESTINAL: Denies nausea, vomiting, abdominal pain, diarrhea, constipation, melena. : Denies dysuria, frequency, incontinence, hematuria, urinary retention. MUSCULOSKELETAL: See HPI SKIN: Denies rash, skin lesions, or other NEUROLOGIC: Denies weakness, headache, numbness, change in speech, confusion, seizures, incoordination. PSYCHIATRIC: No concerning psychosocial issues. 12 point review of systems is negative except for those stated above Patient History Medical History Chronic pain in right shoulder Degenerative joint disease of cervical spine H/O renal calculi Migraine Surgical History Status post Status post shoulder surgery Status post wrist surgery Family History Other Migraine Social History Smoking Status: Current every day smoker Smoking Status: Current every day smoker alcohol intake frequency: holidays/special occasions only Alcohol type: beer Substance Use Type: does not use Exam Narrative Exam Narrative: GENERAL: [41] year old patient appears stated age. Well-developed patient, in mild distress. HEAD: Atraumatic. Normocephalic. EYES: Pupils equal round and reactive. Extraocular motions intact. No scleral icterus. No injection or drainage. ENT: Nose without bleeding, purulent drainage. Throat without erythema, tonsillar hypertrophy or exudate. Airway patent. NECK: Trachea midline. Non tender CARDIOVASCULAR: Regular rate and rhythm without murmurs, gallops, or rubs. RESPIRATORY: Clear to auscultation. Breath sounds equal bilaterally. No wheezes, rales, or rhonchi. GASTROINTESTINAL: Abdomen soft, non-tender, nondistended. EXTREMITIES: Decreased range of motion of left shoulder secondary to pain, no obvious deformity, no significant swelling, redness, ecchymosis. No pain in elbow or wrist. Compartments are soft, this is closed, isolated and neurovascularly intact. BACK: Nontender without deformity or crepitance. No flank tenderness. NEURO: AOx3. SKIN: No rash or erythema of visible areas Initial Vital Signs Initial Vital Signs: Vital Signs Temperature 98.6 F 08/17/22 21:18 Pulse Rate 93 H 08/17/22 21:18 Respiratory Rate 18 08/17/22 21:18 Blood Pressure 134/67 08/17/22 21:18 Pulse Oximetry 100 08/17/22 21:18 Oxygen Delivery Method Room Air 08/17/22 21:18 Procedures Orthopedic Splinting/Casting Injury #1: Side: left Upper Extremity Injury Location: shoulder Upper Extremity Immobilizer: sling/shoulder immobilizer Post splinting neuro exam: intact Post splinting vascular exam: intact Placed by: Nursing Course Orders Ordered: ED Orders 08/17/22 21:24 XR humerus LT 2V Stat XR shoulder LT min 2V Stat Discontinued Medications Hydrocodone Bitart/Acetaminophen (Hydrocodone/Acet 5/325 Prepack) 1 bottle MISC SEEINSTR ONE Stop: 08/17/22 22:50 Last Admin: 08/17/22 23:06 Dose: 1 bottle Documented By: KARLEE Vital Signs Vital signs: Vital Signs - 8 hr 08/17/22 21:18 08/17/22 22:00 Temperature 98.6 F 98.9 F Pulse Rate 93 H 96 H Respiratory Rate 18 16 Blood Pressure 134/67 131/61 Pulse Oximetry 100 99 Oxygen Delivery Method Room Air Room Air MDM - Extremity Injury (Upper) Imaging Data Extremity x-ray #1: My Impression: No shoulder fracture or dislocation Extremity x-ray #2: My Impression: No humerus fracture MDM Narrative Medical decision making narrative: [41] year old patient presents with left shoulder pain after work-related collision, she turned quickly and accidentally slammed her arm into a cabinet Multiple etiologies for patient's symptoms considered including, but not limited to: Fracture, dislocation, contusion, versus other [] Prior Charts reviewed in our EMR Primary Historian: patient Imaging reviewed: No fracture or dislocation on shoulder or humerus imaging Patient with reassuring history and physical exam, no obvious external manifestation of injury, no obvious deformity, contusion, abrasion, hematoma. This is closed, isolated and neurovascularly intact Patient's symptoms improved over duration of stay with above-stated therapies. Findings and discharge diagnosis discussed with patient/family followed by verbalization of understanding Return precautions discussed with patient/family whom verbalize understanding of diagnosis and plan Discharge Plan Departure Patient Disposition: Home Clinical Impression: Injury of shoulder and upper arm Qualifiers: Encounter type: initial encounter Laterality: left Qualified Code(s): S49.92XA - Unspecified injury of left shoulder and upper arm, initial encounter Instructions: DI for Shoulder Sprain Activity Restrictions/Additional Instructions: *You have been diagnosed with [left shoulder and upper arm injury. As we discussed your history and physical exam as well as x-rays are reassuring and there is no evidence of fracture or dislocation.] *What to do: *Please continue to take your regular medications as directed. [ ] New medication prescriptions sent to your pharmacy: [ ] [ ] New medication written as a paper prescription [ ] No new medications given *Please follow up with your primary care provider in 2-3 days, call for an appointment. Let them know you were seen in the Emergency Department and that we ask that you be seen in follow up. We will electronically transmit a record of today's note if your PCP is in our system *If you do not have a primary care provider please contact the [facility] Resource line at [phone]. They will ask some questions about your medical history and help get you set up with a doctor in the community. *Return to Emergency Department if you should have any new, worsening or concerning symptoms, such as [fever greater than 101 F, shaking chills, worsening pain, persistent vomiting or other bothersome symptoms] Prescriptions: No Action sucralfate [Carafate] 100 mg/mL suspension 1 g PO [id number] Rx Instructions: starting 09/27/18 omeprazole 40 mg capsule,delayed release(DR/EC) 40 mg PO [id number] Rx Instructions: starting 09/27/18 tramadol 50 mg tablet 50 mg PO Q6H PRN (Reason: pain) Patient Comments: TAKE 1 TABLET BY MOUTH EVERY 6 HOURS NEEDED Stand Alone Forms: Patient Portal/API
[2022-08-17] MEDS: HYDROCODONE/ACET 5/325 PREPACK 1 BOTTLE MISC (23:06)
--- NOTE | 2022-08-17 23:06 | PC.NURSE ---
Sling applied to LUE. Pt education done.
== END 2022-08-17 23:08 | disposition home or self-care (01) ==
PROVIDERS: Emergency Provider Emergency Medicine
DX: S49.92XA Unspecified injury of left shoulder and upper arm, initial encounter (principal); W22.8XXA Striking against or struck by other objects, initial encounter; Y99.0 Civilian activity done for income or pay
CPT/HCPCS: 73030; 73060; 99281; 99283

== ENCOUNTER 2022-12-23 15:55 | Emergency (ER) | payer OTHER, SELFPAY ==
[2022-12-23 15:57] VITALS: BP 124/66; PULSE 99; RESP 16; TEMP 36.6; O2SAT 97; BMI 27.7
--- NOTE | 2022-12-23 16:26 | ED.SKABFB ---
HPI - Skin/Abscess/Foreign Bdy General Chief complaint: Skin/Abscess/Foreign Body Stated complaint: Arm swollen Time Seen by Provider: 12/23/22 15:56 History of Present Illness HPI narrative: 42-year-old female smoker with a history of diverticulitis and kidney stones presents with her significant other and a chief complaint of gradually worsening left wrist pain, redness and warmth over the past day or 2. She denies any trauma or injury. She denies systemic complaints such as dizziness, weakness or lightheadedness. She has no fever or chills. She denies any numbness, tingling or weakness. She states that she leora on it with a pen earlier in the morning and it seems to be worsening. Related Data Home Medications Medication Instructions Recorded Confirmed omeprazole 40 mg capsule,delayed 40 mg PO [id number] 10/03/18 10/03/18 release sucralfate 100 mg/mL oral 1 g PO [id number] 10/03/18 10/03/18 suspension tramadol 50 mg tablet 50 mg PO Q6H PRN pain 10/03/18 10/03/18 Previous Rx's Medication Instructions Recorded doxycycline hyclate 100 mg tablet 100 mg PO BID #20 tabs 12/23/22 Allergies Allergy/AdvReac Type Severity Reaction Status Date / Time codeine Allergy Mild RASH Verified 10/03/18 13:41 ibuprofen AdvReac Mild EMESIS Verified 10/03/18 13:41 Review of Systems Review of Systems Narrative: GENERAL: Denies chills, fatigue, malaise, fever, sweats. HEENT: Denies sinus pain, ear pain, sore throat, difficulty swallowing, dizziness. RESPIRATORY: Denies dyspnea, cough, wheezing, hemoptysis, sputum. CARDIOVASCULAR: Denies chest pain, palpitations, orthopnea, edema, GASTROINTESTINAL: Denies nausea, vomiting, abdominal pain, diarrhea, constipation, melena. : Denies dysuria, frequency, incontinence, hematuria, urinary retention. MUSCULOSKELETAL: denies weakness, joint pain, or bony pain SKIN: See HPI NEUROLOGIC: Denies weakness, headache, numbness, change in speech, confusion, seizures, incoordination. PSYCHIATRIC: No concerning psychosocial issues. 12 point review of systems is negative except for those stated above Patient History Medical History Chronic pain in right shoulder Degenerative joint disease of cervical spine H/O renal calculi Migraine Surgical History Status post Status post shoulder surgery Status post wrist surgery Family History Other Migraine Social History Smoking Status: Current every day smoker Smoking Status: Current every day smoker alcohol intake frequency: holidays/special occasions only Alcohol type: beer Substance Use Type: does not use Exam Narrative Exam Narrative: GENERAL: [42] year old patient appears stated age. Well-developed patient, in mild distress. HEAD: Atraumatic. Normocephalic. EYES: Pupils equal round and reactive. Extraocular motions intact. No scleral icterus. No injection or drainage. ENT: Nose without bleeding, purulent drainage. Throat without erythema, tonsillar hypertrophy or exudate. Airway patent. NECK: Trachea midline. Non tender CARDIOVASCULAR: Regular rate and rhythm without murmurs, gallops, or rubs. RESPIRATORY: Clear to auscultation. Breath sounds equal bilaterally. No wheezes, rales, or rhonchi. GASTROINTESTINAL: Abdomen soft, non-tender, nondistended. EXTREMITIES: 3 x 4 cm area of erythema, warmth, tenderness and minimal induration on volar aspect of left wrist that has extended a bit beyond a line she leora with a marker earlier in the morning, no lymphangitis, full range of motion in the wrist, low suspicion for septic arthritis, compartments soft BACK: Nontender without deformity or crepitance. No flank tenderness. NEURO: AOx3. SKIN: No rash or erythema of visible areas Initial Vital Signs Initial Vital Signs: Vital Signs Temperature 97.8 F 12/23/22 15:57 Pulse Rate 99 H 12/23/22 15:57 Respiratory Rate 16 12/23/22 15:57 Blood Pressure 124/66 12/23/22 15:57 Pulse Oximetry 97 12/23/22 15:57 Oxygen Delivery Method Room Air 12/23/22 15:57 Course Orders Ordered: Discontinued Medications Hydrocodone Bitart/Acetaminophen (Hydrocodone/Acet 5/325 Prepack) 1 bottle MISC SEEINSTR ONE Stop: 12/23/22 16:24 Last Admin: 12/23/22 16:31 Dose: 1 bottle Documented By: ZEB Doxycycline Hyclate (Doxycycline Hyclate 100 Mg Tablet) 100 mg PO NOW ONE Stop: 12/23/22 16:24 Last Admin: 12/23/22 16:31 Dose: 100 mg Documented By: ZEB Vital Signs Vital signs: Vital Signs - 8 hr 12/23/22 15:57 Temperature 97.8 F Pulse Rate 99 H Respiratory Rate 16 Blood Pressure 124/66 Pulse Oximetry 97 Oxygen Delivery Method Room Air MDM - Skin/Abscess/Foreign Bdy MDM Narrative Medical decision making narrative: [42] year old patient presents with left wrist redness, pain and swelling without injury Multiple etiologies for patient's symptoms considered including, but not limited to: [Cellulitis versus DVT versus septic arthritis versus other] Prior Charts reviewed in our EMR Primary Historian: patient Imaging reviewed: Ultrasound without evidence of clot Patient's history and physical exam are reassuring, she has no systemic complaints, no trauma or injury, no recent travel, multiple diagnoses considered as noted above. DVT thought unlikely given negative ultrasound, redness and warmth suggestive of an infectious process, patient placed on antibiotics and prescription sent to her pharmacy of choice. She is given return precautions which include but are not limited to increasing pain, redness, fever or chills, worsening swelling or other concerning symptoms Findings and discharge diagnosis discussed with patient/family followed by verbalization of understanding Return precautions discussed with patient/family whom verbalize understanding of diagnosis and plan Discharge Plan Departure Patient Disposition: Home Clinical Impression: Cellulitis of arm, left Instructions: DI for Cellulitis -- Adult Activity Restrictions/Additional Instructions: *You have been diagnosed with [left wrist cellulitis] *What to do: *Please continue to take your regular medications as directed. [x ] New medication prescriptions sent to your pharmacy: [[facility] ] [ ] New medication written as a paper prescription [ ] No new medications given *Please follow up with your primary care provider in 2-3 days, call for an appointment. Let them know you were seen in the Emergency Department and that we ask that you be seen in follow up. We will electronically transmit a record of today's note if your PCP is in our system *If you do not have a primary care provider please contact the [facility] Resource line at [phone]. They will ask some questions about your medical history and help get you set up with a doctor in the community. *Return to Emergency Department if you should have any new, worsening or concerning symptoms, such as [fever greater than 101 F, shaking chills, worsening pain, persistent vomiting or other bothersome symptoms] Prescriptions: New doxycycline hyclate 100 mg tablet 100 mg PO BID Qty: 20 0RF No Action sucralfate [Carafate] 100 mg/mL suspension 1 g PO [id number] Rx Instructions: starting 09/27/18 omeprazole 40 mg capsule,delayed release(DR/EC) 40 mg PO [id number] Rx Instructions: starting 09/27/18 tramadol 50 mg tablet 50 mg PO Q6H PRN (Reason: pain) Patient Comments: TAKE 1 TABLET BY MOUTH EVERY 6 HOURS NEEDED Stand Alone Forms: Patient Portal/API
[2022-12-23] MEDS: HYDROCODONE/ACET 5/325 PREPACK 1 BOTTLE MISC (16:31)
[2022-12-23] MEDS: DOXYCYCLINE HYCLATE 100 MG TABLET PO (16:31)
== END 2022-12-23 16:34 | disposition home or self-care (01) ==
PROVIDERS: Emergency Provider Emergency Medicine
DX: L03.114 Cellulitis of left upper limb (principal)
CPT/HCPCS: 99283

== ENCOUNTER 2022-12-30 18:31 | Emergency (ER) | payer OTHER, SELFPAY ==
[2022-12-30 19:05] VITALS: BP 123/57; PULSE 93; RESP 16; O2SAT 100; BMI 27.9
--- NOTE | 2022-12-30 20:16 | ED_ITS ---
HPI - Eye Problem General Chief complaint: Eye Problems Stated complaint: Eye swelling/bug bite this morning Time Seen by Provider: 12/30/22 19:24 Source: patient Mode of arrival: Ambulatory History of Present Illness HPI Narrative: 42F smoker presents with the chief complaint of an insect bite on her left upper lid yesterday. Earlier today she noticed relatively rapid swelling which improved after use of ice. She denies injury or trauma. She has no change in her vision and denies any eye pain. She denies any drainage. She is had no fever or chills. She has no systemic complaints such as dizziness, weakness or lightheadedness, no trouble breathing is otherwise well and free of complaint. Related Data Home Medications Medication Instructions Recorded Confirmed omeprazole 40 mg capsule,delayed 40 mg PO [id number] 10/03/18 10/03/18 release sucralfate 100 mg/mL oral 1 g PO [id number] 10/03/18 10/03/18 suspension tramadol 50 mg tablet 50 mg PO Q6H PRN pain 10/03/18 10/03/18 Previous Rx's Medication Instructions Recorded doxycycline hyclate 100 mg tablet 100 mg PO BID #20 tabs 12/23/22 prednisone 20 mg tablet 20 mg PO DAILY #5 tabs 12/30/22 Allergies Allergy/AdvReac Type Severity Reaction Status Date / Time codeine Allergy Mild RASH Verified 10/03/18 13:41 ibuprofen AdvReac Mild EMESIS Verified 10/03/18 13:41 Review of Systems Review of Systems Narrative: GENERAL: Denies chills, fatigue, malaise, fever, sweats. HEENT: See HPI RESPIRATORY: Denies dyspnea, cough, wheezing, hemoptysis, sputum. CARDIOVASCULAR: Denies chest pain, palpitations, orthopnea, edema, GASTROINTESTINAL: Denies nausea, vomiting, abdominal pain, diarrhea, constipation, melena. : Denies dysuria, frequency, incontinence, hematuria, urinary retention. MUSCULOSKELETAL: denies weakness, joint pain, or bony pain SKIN: See HPI NEUROLOGIC: Denies weakness, headache, numbness, change in speech, confusion, seizures, incoordination. PSYCHIATRIC: No concerning psychosocial issues. 12 point review of systems is negative except for those stated above Patient History Medical History Chronic pain in right shoulder Degenerative joint disease of cervical spine H/O renal calculi Migraine Surgical History Status post Status post shoulder surgery Status post wrist surgery Family History Other Migraine Social History Smoking Status: Current every day smoker Smoking Status: Current every day smoker alcohol intake frequency: holidays/special occasions only Alcohol type: beer Substance Use Type: does not use Exam Narrative Exam Narrative: GEN: AOx3 and in mild distress EYES: Left upper lid swelling. No redness, tenderness, drainage. Lid lifted and no scleral injection or drainage. Pupils are equal, round, and reactive to light and accommodation. Extraoccular muscles are intact bilaterally. There is no subconjunctival hemorrhage or exudate. CHEST: Lungs are clear to auscultation bilaterally and free of wheezes, rales, or rhonchi. Heart rate is regular rhythm, there are no murmurs, clicks, rubs, or gallops. There is no chest wall tenderness. ABD: Abdomen is soft and nontender. There is no guarding or rebound. Bowel sounds are normal in all 4 quadrants. There is no mass or organomegaly. EXT: Full painless ROM of all extremities with no loss of sensation or strength. SKIN: Warm, pink, and dry. No erythema or rash Initial Vital Signs Initial Vital Signs: Vital Signs Pulse Rate 93 H 12/30/22 19:05 Respiratory Rate 16 12/30/22 19:05 Blood Pressure 123/57 L 12/30/22 19:05 Pulse Oximetry 100 12/30/22 19:05 Oxygen Delivery Method Room Air 12/30/22 19:05 Course Orders Ordered: Discontinued Medications Famotidine (Famotidine 20 Mg Tablet) 20 mg PO NOW ONE Stop: 12/30/22 20:22 Last Admin: 12/30/22 20:26 Dose: 20 mg Documented By: RIZWAN Prednisone (Prednisone 20 Mg Tablet) 40 mg PO NOW ONE Stop: 12/30/22 20:21 Last Admin: 12/30/22 20:26 Dose: 40 mg Documented By: RIZWAN Vital Signs Vital signs: Vital Signs - 8 hr 12/30/22 19:05 Pulse Rate 93 H Respiratory Rate 16 Blood Pressure 123/57 L Pulse Oximetry 100 Oxygen Delivery Method Room Air MDM - Eye Problem MDM Narrative Medical decision making narrative: CC: Swelling of left upper eyelid after insect bite Complicating co-morbidities: None known Data collected from: Patient Medical records reviewed: Prior notes reviewed in our EMR Differential considered, but not limited to: Localized reaction to insect bite versus infection versus preseptal cellulitis versus septal cellulitis versus other Exam documented above, pertinent findings include: Patient has soft, painless edema to left upper lid without induration, erythema, warmth or tenderness. No vision change, no painful extraocular motions, no scleral injection or drainage Treatments: Famotidine, Prednisone Discussion: Patient with improving swelling of left upper eyelid after insect bite earlier in the day. No pain, no fever, no redness or drainage. No painful extraocular motions, no vision change or drainage. No evidence of foreign body, trauma or stye. Disposition: see below, along with detailed discharge instructions that have been reviewed with patient as well as indications for ED re-evaluation and additional outpatient follow up Discharge Plan Departure Patient Disposition: Home Clinical Impression: Allergic reaction to insect bite Activity Restrictions/Additional Instructions: *You have been diagnosed with [localized reaction to bug bite. As we discussed your history and physical exam are reassuring and there is no sign of a widespread allergic reaction or anaphylaxis. Also, as we discussed it seems unl ikely that this would be related to an infection process given the presentation] *Please consider the routine use of over the counter antihistamines over the next few days 1. H1 blockers: Benadryl (Diphenhydramine), Zyrtec (Cetirizine), Cindy (Fexofenadine) or Claritin (Loratadine) along with, 2. H2 blockers: Famotidine or Cimetidine *If you can please avoid what triggered your reaction today *What to do: *Please continue to take your regular medications as directed. [x ] New medication prescriptions sent to your pharmacy: [ [facility]] *Please follow up with your primary care provider in 2-3 days, call for an appointment. Let them know you were seen in the Emergency Department and that we ask that you be seen in follow up. We will electronically transmit a record of today's note if your PCP is in our system *Return to Emergency Department if you should have any new, worsening or concerning symptoms, such as swelling of tongue, throat, trouble breathing, or other concerning symptoms Prescriptions: New prednisone 20 mg tablet 20 mg PO DAILY Qty: 5 0RF Rx Instructions: administer with food or milk No Action sucralfate [Carafate] 100 mg/mL suspension 1 g PO [id number] Rx Instructions: starting 09/27/18 omeprazole 40 mg capsule,delayed release(DR/EC) 40 mg PO [id number] Rx Instructions: starting 09/27/18 tramadol 50 mg tablet 50 mg PO Q6H PRN (Reason: pain) Patient Comments: TAKE 1 TABLET BY MOUTH EVERY 6 HOURS NEEDED doxycycline hyclate 100 mg tablet 100 mg PO BID Qty: 20 0RF Stand Alone Forms: Patient Portal/API, Work Release Note
[2022-12-30] MEDS: predniSONE 20 MG TABLET 40 MG PO (20:26)
[2022-12-30] MEDS: FAMOTIDINE 20 MG TABLET PO (20:26)
== END 2022-12-30 20:29 | disposition home or self-care (01) ==
PROVIDERS: Emergency Provider Emergency Medicine
DX: S00.262A Insect bite (nonvenomous) of left eyelid and periocular area, initial encounter (principal); W57.XXXA Bitten or stung by nonvenomous insect and other nonvenomous arthropods, initial encounter
CPT/HCPCS: 99283; A9270

== ENCOUNTER → 2024-09-09 12:30 | Outpatient (CLI) | payer MEDICAID, SELFPAY ==
--- NOTE | 2024-09-09 12:34 | DI.RAD.S_ITS ---
PROCEDURE: XR CERVICAL SPINE 4V OR 5V COMPARISON: None. INDICATIONS: CERVICALGIA WITH OBLIQUES FINDINGS: Cervical spine curvature and alignment: Normal. Bones: There are no osseous abnormalities. Disc spaces: C4-5 degenerative disc disease appreciated Intervertebral foramen: Moderate left and mild right C4-5 IV foraminal narrowing due to uncovertebral spurring. Soft tissues: No soft tissue swelling, calcification or mass. IMPRESSION: Degeneration Dictated by: Frankie Dennis M.D. on 09/10/2024 at 11:21 Approved by: Frankie Dennis M.D. on 09/10/2024 at 11:22
== END ==
PROVIDERS: PCP Family Medicine; Referring Provider Family Medicine; Visit Provider Family Medicine
DX: M50.321 Other cervical disc degeneration at C4-C5 level (principal); M48.02 Spinal stenosis, cervical region
CPT/HCPCS: 72050

== ENCOUNTER → 2025-04-15 15:44 | Outpatient (CLI) | payer MEDICAID, SELFPAY ==
--- NOTE | 2025-04-15 15:47 | DI.RAD.S_ITS ---
PROCEDURE: XR LUMBAR SPINE 2-3V INDICATIONS: LOWER BACK PAIN TECHNIQUE: 3 views of the lumbar spine were acquired. COMPARISON: None. FINDINGS: Bones: 5 [id number] vertebrae are present. 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 There is normal bony alignment. No vertebral body compression fractures. No suspicious bony lesions. Minimal osteophytosis. Soft tissues: Overlying bowel gas pattern is normal. No suspicious soft tissue calcifications. IMPRESSION: Minimal degenerative changes. No acute osseous abnormalities. 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 Dictated by: Chas Lawson M.D. on 04/17/2025 at 13:41 Approved by: Chas Lawson M.D. on 04/17/2025 at 13:42
== END ==
PROVIDERS: PCP Nurse Practitioner Family; Referring Provider Nurse Practitioner Family; Visit Provider Nurse Practitioner Family
DX: M54.50 Low back pain, unspecified (principal); Q76.49 Other congenital malformations of spine, not associated with scoliosis
CPT/HCPCS: 72100